=== PATIENT | female | born 1930 | race Caucasian/White ===

== ENCOUNTER 2018-09-07 09:40 | Inpatient (IN) ==
[2018-09-07 11:30] LABS: BASO# 0.05 X1000 (0.0-0.2); BASO% 0.4 % (0.0-0.8); EOS# 0.19 X1000 (0.0-0.7); EOS% 1.4 % (0.0-10.0); HEMATOCRIT 31.7 % (37.0-47.0); HEMOGLOBIN 9.4 g/dL (12.0-16.0); IMM GRAN# 0.07 X1000 (0.0-0.04); IMM GRAN% 0.5 % (0.0-0.5); LYMPH# 2.45 X1000 (1.2-3.4); LYMPH% 18.5 % (20.5-51.1); MCH 21.2 PG (27-31); MCHC 29.7 g/dL (33-37); MCV 71.6 FL (81-99); MONO# 1.47 X1000 (0.11-0.59); MONO% 11.1 % (1.7-9.3); NEUT# 9.02 X1000 (1.4-6.5); NEUT% 68.1 % (42.2-75.2); PLT 279 X1000 (130-400); RBC 4.43 XMIL (4.2-5.4); RDW 17.1 % (11.5-14.5); WBC 13.25 X1000 (4.8-10.8)
[2018-09-07 11:41] LABS: ALB/GLOB RATIO 1.1; ALBUMIN 3.4 g/dL (3.5-5.0); CALCIUM 9.9 mg/dL (8.8-10.2); CREATININE 1.1 mg/dL (0.5-0.9); POTASSIUM 4.5 mmol/L (3.5-5.1); TOTAL BILIRUBIN 0.46 mg/dL (0.20-1.00); TOTAL PROTEIN 6.4 g/dL (6.3-8.3)
--- NOTE | 2018-09-07 11:57 | Diag Imaging Result Doc PS360 ---
CHEST-2 VIEWS - 09/07/2018 INDICATION: weakness/cough COMPARISON: 10/06/2017 FINDINGS: There is cardiomegaly and pulmonary vascular congestion. There is some hazy infiltrate worse in the lateral left lung. No pneumothorax or pleural effusion. IMPRESSION: 1. Cardiomegaly and pulmonary vascular congestion. 2. Hazy infiltrate in the left lung suggesting pneumonia or edema. Electronically signed by Yoni Mcclellan 09/07/2018 11:55 AM
[2018-09-07 14:28] LABS: URINE SOURCE CATH
[2018-09-07 15:15] LABS: BILIRUBIN URINE NEGATIVE (NEGATIVE); BLOOD URINE NEGATIVE (NEGATIVE); COLOR YELLOW; GLUCOSE URINE NEGATIVE (NEGATIVE); KETONE URINE NEGATIVE (NEGATIVE); PH URINE 5.5; SP GRAVITY URINE 1.023; TURBIDITY URINE HAZY (CLEAR)
[2018-09-07 15:16] LABS: LEUKOCYTES URINE NEGATIVE (NEGATIVE); NITRITE URINE NEGATIVE (NEGATIVE); PROTEIN URINE 70 mg/dL (NEGATIVE); UROBILINOGEN URINE NORMAL (NORMAL)
[2018-09-07 15:17] LABS: UR EPITHELIAL CELLS <10 /HPF (<10); URINE BACTERIA NEGATIVE /HPF; URINE RBC <10 /HPF (<10); URINE WBC <10 /HPF (<10)
--- NOTE | 2018-09-07 15:39 | PROVIDER DOCUMENTATION ---
This chart was entered by Vicki Bender Scribe, acting as scribe for Darien Mckeon DO. HPI-General Adult - General Chief Complaint: General Adult Stated Complaint: STROKE SYMPTOMS Time Seen by Provider: 09/07/18 10:36 Source: patient, family Allergies/Adverse Reactions: Patient Allergies Allergy/AdvReac Type Severity Reaction Status Date / Time codeine Allergy Unknown Verified 10/06/17 21:10 Home Medications: Home Medication List Medication Instructions Recorded Confirmed Last Taken Type Aspirin 81 mg PO DAILY 06/25/13 10/06/17 10/06/17 09:00 History Pantoprazole Sodium [Protonix] 40 mg PO DAILY 06/25/13 10/06/17 10/06/17 09:00 H istory Allopurinol 100 mg PO DAILY 09/24/17 10/06/17 10/06/17 09:00 History Baclofen 10 mg PO QHS 09/24/17 10/06/17 10/05/17 21:00 History Losartan [Cozaar] 100 mg PO DAILY 09/24/17 10/06/17 10/06/17 09:00 History Metoprolol Succinate E.r. [Toprol 100 mg PO QHS 09/24/17 10/06/17 10/05/17 21:00 History Xl] Oxybutynin [Ditropan] 5 mg PO DAILY 09/24/17 10/06/17 10/06/17 09:00 History Trazodone [Desyrel] 100 mg PO QHS 09/24/17 10/06/17 10/05/17 21:00 History Amlodipine [Norvasc] 10 mg PO DAILY #90 tab 09/26/17 10/06/17 10/06/17 09:00 Rx - History of Present Illness -Gen Adult Nature of Presenting Problems: 88 y/o female presents to ED with AMS with unknown onset. Pt complains of mouth pain and SOB. Son of pt states she fell 3 days ago in the restroom and had L wrist pain. Pt was seen by PCP and was told she did not fracture her wrist. Son of pt reports "her mind isn't right." Pt is alert and oriented x 2. Location of Pain/Injury: reports: mouth Pain Radiation: reports: no radiation Quality of Pain: reports: aching Severity: reports: mild Onset/Duration: reports: unsure Timing: reports: still present Context/Activities at Onset: reports: other (fall 3 days ago) Modifying Factors: improves with: nothing Associated Symptoms: reports: shortness of breath, other (mouth pain, AMS) Similar Symptoms Previously?: No Recently seen or treated by another doctor?: Yes (PCP) Review of Systems - Adult - REVIEW OF SYSTEMS - ADULT Constitutional: reports: other (AMS). denies: chills, fever Eyes: reports: no symptoms reported Ears, Nose, Mouth & Throat: reports: mouth/dental pain. denies: epistaxis Cardiovascular: denies: chest pain, palpitations Respiratory: reports: shortness of breath. denies: cough Gastrointestinal: denies: abdominal pain, diarrhea, nausea, vomiting Genitourinary: reports: no symptoms reported Musculoskeletal: denies: back pain, joint pain Integumentary: reports: no symptoms reported Neurological: reports: other (AMS). denies: dizziness/vertigo, seizure Psychiatric: reports: no symptoms reported Endocrine: reports: no symptoms reported Hematologic/Lymphatic: reports: no symptoms reported Allergic/Immunologic: reports: no symptoms reported All Other Systems: Reviewed and Negative Past History - Adult - PAST MEDICAL HISTORY-ADULT Review of Records: reports: Old Records Reviewed, Nursing Assessment Review, Medications Reviewed Major Childhood Illnesses: reports: denies history Cardiovascular: reports: HTN, hyperlipidemia, murmur Respiratory: reports: asthma Gastrointestinal: reports: GERD Obstetrical/Gynecological: reports: denies history Genitourinary: reports: kidney disease Musculoskeletal: reports: denies history Neurological: reports: denies history Endocrine/Immune: reports: denies history Other Conditions: reports: denies history - PRIOR SURGERIES/PROCEDURES Surgical/Procedure History: reports: hysterectomy, orthopedic (extremity) (shoulder, leg), back/neck - PRIOR HOSPITALIZATIONS Prior Hospitalizations: reports: none - IMMUNIZATION STATUS Childhood Immunizations: See Nurse Assessment Flu Vaccine: See Nurse Assessment - FAMILY HISTORY Family History: reviewed, not pertinent - SOCIAL HISTORY Smoking: quit greater than 1 year Substance Use: none/never Alcohol Use Frequency: never Living Situation: family Physical Exam-General - PHYSICAL EXAM-ADULT Initial Vital Signs Reviewed: Yes (O2 sats in 80s/low 90s) - CONSTITUTIONAL General Appearance: appears well, alert, no apparent distress, other (oriented x2) - EYES Eyes: PERRL/EOMI, pink conjunctivae - HEAD, EARS, NOSE, MOUTH & THROAT HENMT: normocephalic/atraumatic, moist mucous membranes, normal ENT inspection - NECK Neck: non-tender, full range of motion - RESPIRATORY Respiratory: chest non-tender, normal breath sounds, crackles - CARDIOVASCULAR Cardiovascular: normal peripheral pulses, regular rate, rhythm - GASTROINTESTINAL (ABDOMEN) Abdominal Exam: normal bowel sounds, non tender, soft - MUSCULOSKELETAL Back Exam: normal inspection, no CVA tenderness, no vertebral tenderness Extremity: normal range of motion, non-tender, swelling (L ankle), other (ecchymosis to L ankle/foot) - SKIN Integumentary: normal color, warm/dry, ecchymosis (L ankle/foot), swelling (L ankle) - NEUROLOGIC Neurologic: educational assistant teacher II-XII nml as tested (Intact), grossly normal, no motor/sensory deficits - PSYCHIATRIC Psych/Mental Status: normal mood/affect, normal thought content, normal thought process. negative: oriented x 3 (x2) Progress - PLAN OF CARE/RESULTS Progress/Plan/Lab Results: Vital Signs - 8 hr 09/07/18 09:48 Temperature 97.8 F Pulse Rate 78 Respiratory Rate 18 Blood Pressure 142/60 O2 Sat by Pulse Oximetry 75 L Orders Category Date Time Status CHEST-2 VIEWS [RAD] Stat Exams 09/07/18 10:46 Ordered CBC WITH ELECTRONIC DIFF [HEME] Stat Lab 09/07/18 10:45 Uncollected COMPREHENSIVE METABOLIC PANEL [CHEM] Stat Lab 09/07/18 10:45 Ordered UA NIMS W/REFLEX CULT [URINALYSIS] Stat Lab 09/07/18 10:46 Uncollected Laboratory Tests 09/07/18 09/07/18 09/07/18 11:00 11:00 14:19 WBC 13.25 H RBC 4.43 Hgb 9.4 L Hct 31.7 L MCV 71.6 L MCH 21.2 L MCHC 29.7 L RDW Std Deviation 17.1 H Plt Count 279 MPV Not Reportable Immature Gran % (Auto) 0.5 Neut % (Auto) 68.1 Lymph % (Auto) 18.5 L [place] % (Auto) 11.1 H Eos % (Auto) 1.4 Baso % (Auto) 0.4 Immature Gran # (Auto) 0.07 H Neut # (Auto) 9.02 H Lymph # (Auto) 2.45 [place] # (Auto) 1.47 H Eos # (Auto) 0.19 Baso # (Auto) 0.05 Sodium 140 Potassium 4.5 Chloride 102 Carbon Dioxide 35 Anion Gap 3 BUN 16 Creatinine 1.1 H Estimated GFR/1.73 m2 47 BUN/Creatinine Ratio 15 Glucose 154 H Calculated Osmolality 284 Calcium 9.9 Total Bilirubin 0.46 AST 15 ALT 12 Alkaline Phosphatase 93 Total Protein 6.4 Albumin 3.4 L Globulin 3.0 Albumin/Globulin Ratio 1.1 Urine Source CATH Urine Color YELLOW Urine Turbidity HAZY Urine pH 5.5 Ur Specific [place] 1.023 Urine Protein 70 A Ur Glucose (Stick) NEGATIVE Ur Ketones (Stick) NEGATIVE Urine Blood NEGATIVE Urine Nitrite NEGATIVE Urine Bilirubin NEGATIVE Urobilinogen Dipstick NORMAL Urine Leukocytes NEGATIVE Urine WBC (Auto) <10 Urine RBC (Auto) <10 U Epithel Cells (Auto) <10 Urine Bacteria (Auto) NEGATIVE Result Diagrams: 09/07/18 11:00 09/07/18 11:00 - EKG 1 Time of EKG reading by physician:: 10:11 EKG Read and Signed by:: Darien Mckeon EKG Interpretation (*Must complete 3 of following elements*): Abnormal Rate: 77 Rhythm: NSR [place]: normal QRS: LVH (with repolarization abnormality), other (possible L atrial enlargem ent) MN Interval: normal ST Wave: normal - XRAY 1 XRAY Study: Chest Impression: See EMR Report ([facility] [address] , [address], [place] [address] Department of Imaging Patient: KEM CHAPAADM Date: 09/07/18#: [id number] : 1930DM Status: REG ERAcct#: [id number] Age/Sex: 88/FRoom/Bed: Loc: ED Ordering Physician: Darien Mckeon DO Family Physician: Lincoln Colorado MD Reason for Procedure: weakness/cough Signed CHEST-2 VIEWS - 09/07/2018 INDICATION: weakness/cough COMPARISON: 10/06/2017 FINDINGS: There is cardiomegaly and pulmonary vascular congestion. There is some hazy infiltrate worse in the lateral left lung. No pneumothorax or pleural effusion. IMPRESSION: 1. Cardiomegaly and pulmonary vascular congestion. 2. Hazy infiltrate in the left lung suggesting pneumonia or edema. Electronically signed by Yoni Mclcellan 09/07/2018 11:55 AM 09/07/18 1155 Interpreting Physician: Yoni Mcclellan MD Dictated Date/Time: 09/07/18 1154 cc: Darien Mckeon DO; Lincoln Colorado MD) - CONSULTS/PCP/HOSPITALIST Notification #1 *Consult/PCP/Hospitalist*: RADHA David for Dr. Johnson Time Discussed: 15:35 Reason/Comments: Pneumonia, AMS Consult Disposition: Admit Departure - Departure Date of Disposition Decision: 09/07/18 Time of Disposition Decision: 15:36 DIAGNOSIS: Pneumonia Qualifiers: Pneumonia type: due to unspecified organism Laterality: left Lung location: unspecified part of lung Qualified Code(s): J18.9 - Pneumonia, unspecified organism Disposition: ADMITTED INPATIENT 09 Certified Medical Emergency: Emergent Condition: Fair Referrals and Follow-Ups: Lincoln Colorado MD [Primary Care Provider] - - Critical Care Note This patient required my direct & personal management of CC.: No Attestation - Physician/ ANDRAE Attestation Patient care was provided by Advanced Practice Provider:: No The physician spent face to face time with patient:: Yes Advanced Practice Provider documentation review:: Supervising physician onsite and consulted in the evaluation and care of this patient. The physician did have a face to face encounter with the patient. This chart was documented by the indicated scribe, (Vicki Bender Scribe) and accurately reflects the services I performed and decisions made by , Darien Mckeon DO, as attested by the provider's signature.
[2018-09-07] MEDS ORDERED: LEVAQUIN 500 MG/D5W 500 MG/100 ML IVPB IV SCH (16:15)
[2018-09-07] MEDS ORDERED: DUONEB (A & A) INH PRN (16:38)
[2018-09-07] MEDS ORDERED: TYLENOL PO PRN (16:38)
[2018-09-07] MEDS ORDERED: LEVAQUIN 250 MG/D5W 250 MG/50 ML IVPB IV ONE (17:00)
[2018-09-07 17:01] LABS: IRON SATURATION 3 %; TIBC 301 ug/dL; TOTAL IRON 10 ug/dL (49-151); UNBOUND IRON 291 ug/dL (112-346)
[2018-09-07] MEDS ORDERED: LASIX IV ONE (17:04)
[2018-09-07 17:26] LABS: ALLEN TEST NO; BE 5.9 mmoll (-3.0-3.0); BLOOD TYPE ARTERIAL; HCO3-(ACT) 29.5 mmoll (20.0-26.0); O2(CT) 12.2 mL/dL (15.0-23.0); O2HB 93.8 % (95.0-99.0); PCO2(98.6) 48 mmHg (35-45); PO2(98.6) 67 mmHg (60-100); SAMPLE BLOOD; SAO2 96.3 % (95.0-100.0); THB 9.2 g/dL (11.5-17.4); pH(98.6) 7.42 (7.35-7.45)
[2018-09-07 17:28] LABS: MODALITY CANNULA
--- NOTE | 2018-09-07 17:33 | HISTORY AND PHYSICAL ---
PRIMARY CARE PROVIDER: Dr. Lincoln Colorado. CHIEF COMPLAINT: Per patient, shortness of breath, increase in weakness. HISTORY OF PRESENT ILLNESS: Ms. Martini is an 88-year-old female who carries a past medical history of hypertension, GERD, hyperlipidemia, anxiety, insomnia, and gout, who for the past few days has had difficulty breathing and has been wheezing on and off for several months. She reports falling sometime last week. She had a x-ray of her foot as well as wrist that just showed, per family at bedside, there was nothing wrong with the wrist and she had twisted her ankle. There continues to be some swelling and various shades of bruising of green and yellow. She has a son at the bedside who is deaf as well as a caregiver who is deaf. I did speak with a daughter over the phone via face time who reports that she was told today that she was having trouble breathing and she is the one who reported that she has been wheezing on and off over the last several months. Workup in the ED showed an elevated white count of 13 and a chest x-ray that showed cardiomegaly, pulmonary vascular congestion, a hazy infiltrate in the left lung suggesting pneumonia or edema. She does report feeling hot last night, as well as a frequent cough that is nonproductive. Initially reported some altered mental status. However, the family did not write this down or tell me over the phone that she was confused. She is A O x4. She denied headache, fever, chill, chest pain, palpitations, nausea, vomiting, diarrhea, constipation, dysuria. However, son at the bedside wrote down that she was having to get up several times during the night to go to the restroom. Given her chest x-ray, we will go ahead and check a proBNP as well as a set of cardiac enzymes. Her urinalysis is negative for bacteria, negative for nitrites. Will initiate her on IV antibiotics and IV fluids for an acute kidney injury on probable kidney disease. We will recheck her a.m. labs. PAST MEDICAL HISTORY: 1. Hypertension. 2. GERD. 3. Hyperlipidemia. 4. Anxiety. 5. Insomnia. 6. Questionable TIA in the past. 7. Gout. 8. 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 PAST SURGICAL HISTORY: 1. Hysterectomy. 2. Shoulder surgery. 3. Back surgery. 4. Left leg surgery with angus placement. SOCIAL HISTORY: She is a . She has a deaf caregiver at the bedside as well as her deaf, a daughter who lives in [place]. She denies any alcohol or illicit drug use. She quit smoking at the age of 52. FAMILY HISTORY: Father from a myocardial infarction. Mother of a CVA. Sister who from pancreatic cancer and a brother who from pneumonia and end-stage renal disease. ALLERGIES: Codeine. HOME MEDICATIONS: Have not been verified. PHYSICAL EXAMINATION: VITAL SIGNS: Temperature is 97.8 degrees, heart rate 77, respirations 22, blood pressure 157/97, O2 is 92% on 5 L nasal cannula. Initially when she came in she was hypoxic at 75. We will check an ABG to see how she is saturating on supplemental O2. GENERAL: Ms. Martini is an 88-year-old female who is lying in the bed, in no acute distress. HEENT: Atraumatic, normocephalic. PERRL. NECK: Supple. Trachea midline. CARDIOVASCULAR: S1, S2 appreciated. No murmurs, gallops, rubs noted. RESPIRATORY: Lung sounds did note some expiratory wheezes. GI: Soft, nontender, nondistended. Positive bowel sounds 4 quadrants. EXTREMITIES: Her left foot was swollen secondary to an ankle twist with various degrees of bruising, green and yellow appearance. NEUROLOGIC: Patient is awake, alert, oriented x4. Follows commands. Moves all extremities. DIAGNOSTIC DATA: Chest x-ray: Cardiomegaly, pulmonary vascular congestion, hazy infiltrate in the left lung suggesting pneumonia or edema. LABORATORY DATA: White count 13, hemoglobin and hematocrit 9 and 31, platelet count 279,000. Sodium 140, potassium 4.5, BUN 16, creatinine 1.1, blood glucose is 154, albumin is 3.4. Urinalysis was negative. ASSESSMENT AND PLAN: 1. Hypoxemia upon admission. The patient was 75% on room air. She has since been on supplemental O2. We will check an ABG. She is currently on 5 L. Probably secondary to pneumonia, questionable pulmonary edema. 2. Probable left-sided pneumonia. She does have an elevated white count of 13. We will start her on IV antibiotics, bronchodilators, supplemental O2, and aggressive pulmonary toilet. 3. Questionable pulmonary edema as seen on chest x-ray. We will check a proBNP as well as a set of cardiac enzymes. 4. Chronic kidney disease. Appears to be stable. 5. Hyperglycemia. The patient denies any history of diabetes and does not appear to be any diabetic medications. 6. Hypertension. Will continue home medications when verified. 7. Hyperlipidemia. Will continue medications when verified. 8. Anxiety and insomnia. 9. Gout. 10. 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 11. Further recommendations to follow physician evaluation, laboratory and diagnostic data. Dictated by RADHA Hong for Josh Johnson MD cc: MD Lincoln Ellison MD I agree with most components of history, physical, assessment and plan. A separate addendum has been dictated. CURTIS
--- NOTE | 2018-09-07 17:39 | HISTORY AND PHYSICAL ---
ADDENDUM TO HISTORY AND PHYSICAL DICTATED BY THE NURSE PRACTITIONER: I agree with most components of history, physical, assessment and plan. In brief, Ms. Martini is an 88-year-old lady with past medical history of essential hypertension, gout, asthma, diastolic dysfunction, right eye blindness, previous episodes of unexplained encephalopathy, who came in with chief complaints of altered mental status, shortness of breath, and fall episode, mechanical fall 3 days prior to presentation on left ankle. In the emergency room, she was found to be tachypneic, hypoxic and having leukocytosis. Unfortunately though, the chest x-ray detected bilateral infiltrate predominantly on the left side. She has not been given antibiotics. Hospitalist team was consulted for further management. By the time I evaluated the patient, she had already been transferred to the floor. Antibiotics had been ordered by my nurse practitioner. SUBJECTIVE: At the time of my evaluation, patient denies any shortness of breath. She states she has been coughing recently, but has not been bringing up any sputum. She denies any chest pain. Family is not available to talk to me, however, nurse practitioner did talk with the patient's daughter on video call. PHYSICAL EXAMINATION: VITAL SIGNS: Temperature 98.3 degrees, pulse of 72, respiratory rate 20, blood pressure 150/54. She is saturating 94% on 5 L nasal cannula. GENERAL: She appears to be in mild distress and using abdominal muscles. No pallor, cyanosis, clubbing, or icterus. HEENT: Oral cavity is moist. LUNGS: She has air entry bilaterally equal, mild end-expiratory wheezes, bilateral infrascapular crackles inspiratory. CARDIOVASCULAR: S1, S2 normal. No murmur, rub, or gallop. ABDOMEN: Obese, soft, nontender. No hepatosplenomegaly. EXTREMITIES: She has bilateral lower extremity edema, more prominent on the left ankle with some ecchymosis. LABORATORY DATA: Suggestive of leukocytosis, microcytic anemia, normal platelet count, normal electrolytes, what appears to be chronic kidney disease stage 3, elevated proBNP. Her ABG is pending. Blood culture has not been ordered. IMAGING: Chest x-ray suggests bilateral pulmonary vascular congestion, bilateral lower pulmonary lobe infiltrate. ASSESSMENT AND PLAN: 1. Suspected sepsis due to left lower lobe pneumonia. 2. Acute hypoxic respiratory failure due to left lower lobe pneumonia. 3. Diastolic heart failure, acute exacerbation of diastolic heart failure. 4. Chronic kidney disease stage 3. 5. Microcytic hypochromic anemia. 6. Chronic hypoxic respiratory failure. 7. Essential hypertension with history of asthma. PLAN: I discussed with the nurse to immediately give her antibiotics. I will give her intravenous Lasix, albuterol ipratropium nebulization, and get an ABG. I will also get blood culture, sputum culture, urine antigen. I will follow up with EKG and troponins. Plan of care discussed with the patient. All of her questions have been answered. Neurologically, she is alert. She is oriented to place. She is following simple commands and able to contribute to most of the history, however, she does have some memory impairment. cc: Josh Johnson MD
[2018-09-07 19:33] LABS: INR 1.01; PROTIME 14.1 Seconds (11.0-16.0)
[2018-09-07 19:34] LABS: PTT 28.2 Seconds (22.3-41.8)
[2018-09-07 19:53] LABS: URINE SOURCE CLEAN CATCH
[2018-09-07] MEDS: DUONEB (A & A) INH SCH ×2 (20:00→23:11)
[2018-09-07 20:12] LABS: BILIRUBIN URINE NEGATIVE (NEGATIVE); BLOOD URINE NEGATIVE (NEGATIVE); COLOR STRAW; GLUCOSE URINE NEGATIVE (NEGATIVE); KETONE URINE NEGATIVE (NEGATIVE); LEUKOCYTES URINE NEGATIVE (NEGATIVE); NITRITE URINE NEGATIVE (NEGATIVE); PROTEIN URINE NEGATIVE (NEGATIVE); SP GRAVITY URINE 1.006; TURBIDITY URINE CLEAR (CLEAR); UROBILINOGEN URINE NORMAL (NORMAL)
[2018-09-07 20:15] LABS: UR EPITHELIAL CELLS <10 /HPF (<10); URINE BACTERIA NEGATIVE /HPF; URINE RBC <10 /HPF (<10); URINE WBC <10 /HPF (<10)
[2018-09-07] MEDS: TOPROL XL PO SCH (21:35)
[2018-09-08] MEDS: DUONEB (A & A) INH SCH ×6 (03:40→23:25)
[2018-09-08 04:52] LABS: ALLEN TEST YES; BE 8.2 mmoll (-3.0-3.0); BLOOD TYPE ARTERIAL; HCO3-(ACT) 31.3 mmoll (20.0-26.0); METHB 0.6 % (0.0-1.5); O2(CT) 12.2 mL/dL (15.0-23.0); O2HB 94.9 % (95.0-99.0); PCO2(98.6) 40 mmHg (35-45); PO2(98.6) 69 mmHg (60-100); SAMPLE BLOOD; SAO2 97.1 % (95.0-100.0); THB 9.1 g/dL (11.5-17.4); pH(98.6) 7.51 (7.35-7.45)
[2018-09-08 04:55] LABS: MODALITY BI PAP
[2018-09-08] MEDS ORDERED: LASIX IV ONE (06:00)
--- NOTE | 2018-09-08 06:36 | Diag Imaging Result Doc PS360 ---
EXAM: CHEST-PORTABLE HISTORY: Pneumonia TECHNIQUE: Portable chest single view COMPARISON: 09/07/2018 FINDINGS: The lungs are well expanded. The heart is mildly prominent. There is pulmonary edema similar to the prior exam. No pleural effusions identified. No consolidation. IMPRESSION: Persistent cardiomegaly and pulmonary edema. Electronically signed by Chinmay Tate 09/08/2018 6:33 AM
[2018-09-08 07:08] LABS: BASO# 0.04 X1000 (0.0-0.2); BASO% 0.4 % (0.0-0.8); EOS# 0.41 X1000 (0.0-0.7); HEMATOCRIT 33.5 % (37.0-47.0); HEMOGLOBIN 9.8 g/dL (12.0-16.0); IMM GRAN# 0.05 X1000 (0.0-0.04); IMM GRAN% 0.5 % (0.0-0.5); LYMPH# 1.55 X1000 (1.2-3.4); LYMPH% 15.3 % (20.5-51.1); MCH 20.8 PG (27-31); MCHC 29.3 g/dL (33-37); MONO# 1.12 X1000 (0.11-0.59); MPV 12.9 FL (7.4-10.4); NEUT# 6.97 X1000 (1.4-6.5); NEUT% 68.8 % (42.2-75.2); PLT 312 X1000 (130-400); RBC 4.72 XMIL (4.2-5.4); RDW 16.9 % (11.5-14.5); WBC 10.14 X1000 (4.8-10.8)
[2018-09-08 07:19] LABS: EOS 4 % (1-10); LYMPHS 18 % (21-51); MONO 12 % (1-9); SEGS 66 % (42-75)
[2018-09-08 07:29] LABS: ALBUMIN 3.5 g/dL (3.5-5.0); CALCIUM 10.2 mg/dL (8.8-10.2); CREATININE 1.1 mg/dL (0.5-0.9); POTASSIUM 3.6 mmol/L (3.5-5.1); TOTAL BILIRUBIN 0.61 mg/dL (0.20-1.00)
--- NOTE | 2018-09-08 08:40 | EKG Report ---
Test Performed on : 09/07/2018 10:11:52 AM Test Reason : ED. NO EKG ORDER FOR MUSE Blood Pressure : / mmHG Vent. Rate : 077 BPM Atrial Rate : 077 BPM P-R Int : 154 ms QRS Dur : 080 ms QT Int : 368 ms P-R-T Axes : 042 -12 078 degrees QTc Int : 416 ms Normal sinus rhythm. Possible Left atrial enlargement Left ventricular hypertrophy with repolarization abnormality Abnormal ECG When compared with ECG of 06-OCT-2017 21:03, No significant change was found Unconfirmed Result
[2018-09-08] MEDS: ASPIRIN PO SCH (10:18)
[2018-09-08] MEDS: DITROPAN PO SCH (10:18)
[2018-09-08] MEDS: FERROUS SULFATE PO SCH (10:18)
[2018-09-08] MEDS: ZYLOPRIM PO SCH (10:19)
[2018-09-08] MEDS: LEVAQUIN 750 MG/D5W 750 MG/150 ML IVPB IV SCH (10:19)
[2018-09-08] MEDS: LEXAPRO PO SCH (10:19)
[2018-09-08] MEDS: PROTONIX PO SCH (10:19)
--- NOTE | 2018-09-08 13:30 | PROGRESS NOTE ---
DATE: 09/08/2018 INTERVAL HISTORY: No acute events overnight. The patient did receive her BiPAP at nighttime. In the morning time her oxygenation looked better on BiPAP SUBJECTIVE: Patient states she is feeling a little better; however, is not able to contribute to the history meaningfully as she does have memory impairment. She was saturating 99% on BiPAP. Her leukocytosis has resolved and she has been started on iron tablets for iron deficiency anemia. Her troponins were negative. She is coughing but not bringing up sputum. VITALS: Temperature 98.1 degrees, pulse 71, respiratory 20, blood pressure 130/47. She is saturating 99% on 4 to 5 L nasal cannula. PHYSICAL EXAMINATION: General: Does not appear in any acute distress. HEENT: Oral cavity is moist bilateral. Lungs: Air entry bilaterally equal. Mild end-expiratory wheezes and bilateral infrascapular crackles. Cardiovascular: S1, S2 normal. No murmur or gallop. Abdomen: Obese, soft, nontender. She has bilateral lower extremity edema, more prominent on the left ankle with some ecchymosis. Neurologic: She is alert she is oriented to herself. She could recognize me as her doctor. She remembers her son and she largely remembers her past history, but with some memory gaps. LABS: Suggestive of resolution of leukocytosis with WBC of 10,000. Continues to have microcytic anemia with hemoglobin of 9.8, platelet 312,000, pH of 7.5, and PO2 of 69 on 30% BiPAP. Kidney function is stable at CKD stage 3 level. She does have significant iron deficiency with low iron saturation. IMAGING: Chest x-ray suggests persistent cardiomegaly and pulmonary edema. Electrocardiogram had normal sinus rhythm with left atrial enlargement. ASSESSMENT AND PLAN: 1. Acute hypoxic respiratory failure and suspected sepsis due to left lower lobe pneumonia and bilateral acute pulmonary edema. Continue intravenous Lasix, intravenous levofloxacin. Follow up urine antigens. Follow up echocardiogram. I will keep her on night time BiPAP and follow up blood cultures. 2. Suspected acute diastolic congestive heart failure exacerbation. Follow up with echocardiogram. She denies any known history of coronary artery disease or stent. 3. Microcytic hypochromic anemia with iron deficiency start. Patient on iron sulfate supplementation. 4. History of asthma. Continue albuterol ipratropium nebulization. Currently not in significant exacerbation. 5. Others continue metoprolol and aspirin for essential hypertension, pantoprazole for chronic gastroesophageal reflux disease , oxybutynin for bladder spasm. 6. Disposition: Continue to monitor patient inside the hospital. Physical therapy has been ordered. I conveyed the plan with the patient's son by writing it in a paper. All of his questions have been answered. Once I get daughter's contact information I will update her as well. cc: Josh Johnson MD
[2018-09-08] MEDS: KLOR-CON PO SCH ×2 (13:33→17:19)
[2018-09-08] MEDS: LASIX IV SCH (17:19)
--- NOTE | 2018-09-08 19:59 | ECHO REPORT ---
ORDER DATE: 09/07/2018 INDICATION: Evaluate ejection fraction. FINDINGS: 1. The right atrium appears normal in size at 3 cm. 2. Mild tricuspid regurgitation. RV systolic pressure of 71, suggesting pulmonary hypertension. 3. Normal RV size and systolic function. 4. Mild pulmonic insufficiency. 5. Moderate left atrial enlargement with a volume index of 35. 6. No mitral valve prolapse. Mitral annular calcification is noted with mild mitral regurgitation. 7. Normal LV dimensions with an end-diastolic dimension of 5.2. Normal wall thicknesses with posterior and interventricular septal wall thickness of 1.1 cm each. Normal LV systolic function with calculated ejection fraction of 67%, with normal wall motion. 8. Aortic valve has some calcification associated with it. Peak gradient across the valve is 27 with a mean of 16, valve area of 1.5 cm2, suggesting mild aortic stenosis. There is mild aortic insufficiency. 9. The aorta appears normal in visualized segments. 10. No pericardial effusion identified. cc: Anthony Serrano MD
[2018-09-08] MEDS: TOPROL XL PO SCH (22:07)
[2018-09-09] MEDS: DUONEB (A & A) INH SCH ×6 (03:40→23:29)
[2018-09-09] MEDS: LASIX IV SCH ×2 (06:18→17:15)
[2018-09-09 06:53] LABS: CALCIUM 10.2 mg/dL (8.8-10.2); CREATININE 1.1 mg/dL (0.5-0.9); MAGNESIUM 1.8 mg/dL (1.5-2.7); POTASSIUM 4.6 mmol/L (3.5-5.1)
[2018-09-09] MEDS: ZYLOPRIM PO SCH (09:35)
[2018-09-09] MEDS: LEXAPRO PO SCH (09:36)
[2018-09-09] MEDS: DITROPAN PO SCH (09:36)
[2018-09-09] MEDS: ASPIRIN PO SCH (09:36)
[2018-09-09] MEDS: PROTONIX PO SCH (09:36)
[2018-09-09] MEDS: FERROUS SULFATE PO SCH (09:36)
[2018-09-09] MEDS: LEVAQUIN 750 MG/D5W 750 MG/150 ML IVPB IV SCH (09:36)
[2018-09-09] MEDS ORDERED: LOPRESSOR PO ONE (14:52)
--- NOTE | 2018-09-09 15:17 | PROGRESS NOTE ---
DATE: 09/09/2018 INTERVAL HISTORY: No acute events overnight. The patient is a little more confused today as compared to before, though she denies any new complaints. She complains of some mouth sores. I was not able to talk with the patient's daughter on video call since she did not product picker. SUBJECTIVE: The patient denies any chest pain. Her shortness of breath is better. She states she uses about 2 to 3 L of oxygen at home. VITALS: Temperature 97.8 degrees, pulse 96, respiratory rate 20, blood pressure 160/60, saturating 100% on 5 L nasal cannula and I have placed orders to decrease the amount of oxygen. PHYSICAL EXAMINATION: General: Does not appear in any acute distress. Slightly anxious. Oral cavity, she has about a 1 cm, round-looking ulcer on the floor of the mouth likely because of an ill-fitting denture. Oral cavity is moist without pharyngeal exudate. Air entry bilaterally equal. Mild end-expiratory wheezes. No rhonchi. Inspiratory crackles. S1, S2 normal. No murmur, rub, or gallop. Abdomen is obese, soft, nontender. Decreased bilateral lower extremity edema. She is alert and oriented to herself. She is engaging in history most of the time. LABS: Today suggestive of stable chronic kidney disease stage 3. MICROBIOLOGY: Blood culture, no growth to date. The patient has not been able to make sputum. Urine streptococcal and Legionella antigens are negative. ProBNP is pending for tomorrow. ASSESSMENT AND PLAN: 1. Acute hypoxic respiratory failure and suspected sepsis due to left lower lobe pneumonia and bilateral acute pulmonary edema. Continue intravenous Lasix and change to oral Lasix starting tomorrow. Continue intravenous levofloxacin. Echocardiogram had normal left ventricular ejection fraction with pulmonary hypertension. 2. Acute diastolic congestive heart failure exacerbation. Follow up proBNP tomorrow. Continue Lasix and beta blockers. 3. Microcytic, hypochromic anemia with iron deficiency. Continue iron sulfate supplementation. 4. Suspected mild cognitive impairment. The patient may have early dementia. I will defer management to outpatient provider about starting her on cholinesterase inhibitor medications. 5. Others. Continue albuterol-ipratropium nebulization for history of asthma and chronic hypoxic respiratory failure; aspirin, metoprolol, and amlodipine for essential hypertension; pantoprazole for chronic gastroesophageal reflux disease; oxybutynin for bladder spasm. 6. Disposition. The patient appears to be improving at a slower pace. The patient needs significant help with her activities of daily living and social work consult has been placed. I called the patient's daughter who lives in [place] at [phone]. However, the call directly goes in her voicemail which is full. Plan of care discussed with the social service liaison and nursing team. cc: Josh Johnson MD
[2018-09-09] MEDS: XYLOCAINE 2% VISCOUS MT SCH (15:54)
[2018-09-09 20:34] LABS: CALCIUM 10.8 mg/dL (8.8-10.2); CREATININE 1.6 mg/dL (0.5-0.9); MAGNESIUM 1.7 mg/dL (1.5-2.7); POTASSIUM 4.5 mmol/L (3.5-5.1)
[2018-09-09] MEDS ORDERED: CARDIZEM IV ONE (21:01)
[2018-09-09] MEDS ORDERED: CARDIZEM 125 MG/D5W 125 MG/125 ML IVPB IV SCH (21:15)
[2018-09-09] MEDS ORDERED: CARDIZEM 100 MG/NS 100 MG/100 ML IVPB IV SCH (21:15)
[2018-09-10] MEDS: DUONEB (A & A) INH SCH ×4 (03:33→16:12)
[2018-09-10] MEDS ORDERED: LASIX PO SCH (06:00)
[2018-09-10 06:14] LABS: CALCIUM 10.3 mg/dL (8.8-10.2); CREATININE 1.8 mg/dL (0.5-0.9); POTASSIUM 4.7 mmol/L (3.5-5.1)
--- NOTE | 2018-09-10 06:56 | EKG Report ---
Test Performed on : 09/09/2018 8:00:07 PM Test Reason : A-Fib Blood Pressure : / mmHG Vent. Rate : 141 BPM Atrial Rate : 138 BPM P-R Int : 000 ms QRS Dur : 074 ms QT Int : 292 ms P-R-T Axes : 000 -29 066 degrees QTc Int : 447 ms Atrial fibrillation. with rapid ventricular response. Voltage criteria for left ventricular hypertrophy Nonspecific ST abnormality Abnormal ECG When compared with ECG of 07-SEP-2018 10:11, (Unconfirmed) Atrial fibrillation. has replaced Sinus rhythm. Vent. rate has increased BY 64 BPM Confirmed by Nestor Peace MD ([id number]) on 09/10/2018 5:50:50 PM
[2018-09-10] MEDS ORDERED: NS 1,000 ML IV ONE (08:23)
--- NOTE | 2018-09-10 08:23 | EKG Report ---
Test Performed on : 09/10/2018 08:17:38 AM Test Reason : rhythm change Blood Pressure : / mmHG Vent. Rate : 091 BPM Atrial Rate : 091 BPM P-R Int : 138 ms QRS Dur : 072 ms QT Int : 366 ms P-R-T Axes : 034 -26 030 degrees QTc Int : 450 ms Sinus rhythm. with marked sinus arrhythmia. Voltage criteria for left ventricular hypertrophy Abnormal ECG When compared with ECG of 09-SEP-2018 20:00, (Unconfirmed) Sinus rhythm. has replaced Atrial fibrillation. Vent. rate has decreased BY 50 BPM Non-specific change in ST segment in Lateral leads Confirmed by Nestor Peace MD ([id number]) on 09/10/2018 6:06:29 PM
[2018-09-10] MEDS: NORVASC PO SCH (08:53)
[2018-09-10] MEDS: PROTONIX PO SCH (08:53)
[2018-09-10] MEDS: ASPIRIN PO SCH (08:53)
[2018-09-10] MEDS: DITROPAN PO SCH (08:54)
[2018-09-10] MEDS: ZYLOPRIM PO SCH (08:54)
[2018-09-10] MEDS: TOPROL XL PO SCH ×3 (08:54→20:34)
[2018-09-10] MEDS: FERROUS SULFATE PO SCH (08:54)
[2018-09-10] MEDS: LEXAPRO PO SCH (08:54)
[2018-09-10] MEDS ORDERED: TOPROL XL PO SCH (09:00)
--- NOTE | 2018-09-10 10:33 | PROGRESS NOTE ---
DATE: 09/10/2018 INTERVAL HISTORY: Overnight, the patient went into atrial fibrillation with rapid ventricular rate with a heart rate as high as 150, so she was transferred to [facility] and was started on intravenous diltiazem drip. In the morning time, I was told she had converted back to normal sinus rhythm. She did not have any chest pain or shortness of breath during this episode, and she was not hypotensive. SUBJECTIVE: She appears weak today. She is also sleepy. She keeps her eyes closed. She follows simple commands intermittently, but appears very weak and less energetic as compared to previous examination. Her son is at bedside. OBJECTIVE: Vital Signs: Temperature 99.2 degrees, pulse 91, respiratory rate 19, blood pressure 150/63, she is saturating 98% on 4 L nasal cannula. General: She appears weak, not in any distress though. HEENT: Oral cavity is dry. Lungs: Air entry bilaterally equal. No wheeze, rhonchi, or crackles. Cardiovascular: S1, S2 normal. Regular. No murmur, rub, or gallop. Abdomen: Soft, nontender. It is slightly distended. No hepatosplenomegaly. Extremities: No lower extremity edema. Neurologic: She is drowsy, but easily arousable. LABORATORY DATA: No CBC today. BMP suggestive of acute kidney injury on what appears to be chronic kidney disease stage 3A, likely because of Lasix use. Hypercalcemia due to volume depletion. Her troponin was 0.016. Her proBNP has significantly decreased. MICROBIOLOGY: No growth. IMAGING: Electrocardiogram this morning is suggestive of sinus rhythm with sinus arrhythmia. ASSESSMENT AND PLAN: 1. Acute hypoxic respiratory failure and sepsis due to left lower lobe pneumonia and bilateral acute pulmonary edema due to acute diastolic congestive heart failure exacerbation. Stop Lasix considering her acute kidney injury, and give her gentle intravenous fluid resuscitation with normal saline. Continue intravenous levofloxacin, and I will change the dosing frequency considering her poor renal function. Echocardiogram had normal left ventricular ejection fraction with pulmonary hypertension, which could be a contributor to her hypoxia. Her ProBNP improved significantly after intravenous diuresis. 2. Atrial fibrillation with rapid ventricular response. Her volume depletion could have contributed to it. She does not have documented history of it. However, history is limited at the moment. Stop intravenous diltiazem drip, and start the patient on her home dose of extended-release metoprolol twice daily dosing. Also, keep her on PO Diltiazem for 24 hours. Her CHADS2-VASc score is at least 4. For now, I will give her therapeutic dose of enoxaparin. Daughter understood the risk vs benefit of anticoagulation and prefers to start her on anticoagulation. Once kidney function is better, I would start her Apixaban. 3. Microcytic hypochromic iron-deficiency anemia. Continue iron sulfate supplementation, and outpatient Gastroenterology followup to evaluate for need for endoscopy. She does not have signs of active bleeding. 4. Acute encephalopathy on top of Mild cognitive impairment and suspected early dementia. Daughter did mention to me about some memory impairment at baseline, however, I would get CT scan head since she is less interactive today then yesterday. 5. Others. Hold albuterol/ipratropium nebulization for history of asthma for now considering her tremors and wean down oxygen to keep spo2>94 for chronic hypoxic respiratory failure on home oxygen; aspirin, metoprolol, and amlodipine for essential hypertension; pantoprazole for chronic gastroesophageal reflux disease; oxybutynin for bladder spasm. 6. Disposition. My initial plan was to find a rehab, and discharge the patient to rehab hopefully today. However, considering atrial fibrillation episode, I will monitor her for another 24 hours while we await rehab bed. The patient's son at bedside is deaf, and I was not able to reach out to the patient's daughter yesterday despite multiple attempts. The patient's son has conveyed to me by writing on a piece of paper that he would like the patient to go to a rehab in [place]. However, considering her recent atrial fibrillation episode, I will monitor for 24 hours and wait for rehab bed in [place]. Meanwhile, I will also again try and get in touch with the patient's daughter. Plan of care discussed with the patient's son. All of his questions have been answered. ADDENDUM: I was able to talk to her daughter Shanna Rider on [phone] and updated her. Patient has a bed in [place] for Saturday. cc: MD CURTIS Ellison
[2018-09-10] MEDS: LOVENOX SUBQ SCH (11:41)
[2018-09-10] MEDS: XYLOCAINE 2% VISCOUS MT SCH (15:58)
[2018-09-10] MEDS: CARDIZEM PO SCH (16:24)
--- NOTE | 2018-09-10 18:11 | Diag Imaging Result Doc PS360 ---
CT HEAD W/O CONTRAST - 09/10/2018 INDICATION: encephalopathy COMPARISON: 09/24/2017 FINDINGS: Stable mild diffuse cerebral atrophy. There are stable small, old lacunae in the basal ganglia and caudate bilaterally. Stable periventricular white matter chronic microvascular disease. No intracranial mass or hemorrhage. The skull is intact. The sinuses are clear. IMPRESSION: No acute process. This exam was performed using automated exposure control, adjustment of mA or kV according to patient size, and/or use of iterative reconstruction technique Electronically signed by Yoni Mcclellan 09/10/2018 6:09 PM
[2018-09-11] MEDS: CARDIZEM PO SCH ×4 (00:29→17:47)
[2018-09-11 06:05] LABS: BASO# 0.07 X1000 (0.0-0.2); BASO% 0.6 % (0.0-0.8); EOS# 0.56 X1000 (0.0-0.7); HEMATOCRIT 32.6 % (37.0-47.0); HEMOGLOBIN 9.6 g/dL (12.0-16.0); IMM GRAN# 0.06 X1000 (0.0-0.04); IMM GRAN% 0.5 % (0.0-0.5); LYMPH# 2.07 X1000 (1.2-3.4); LYMPH% 18.6 % (20.5-51.1); MCH 20.9 PG (27-31); MCHC 29.4 g/dL (33-37); MONO# 1.09 X1000 (0.11-0.59); MONO% 9.8 % (1.7-9.3); NEUT# 7.25 X1000 (1.4-6.5); NEUT% 65.5 % (42.2-75.2); PLT 336 X1000 (130-400); RBC 4.59 XMIL (4.2-5.4); RDW 17.6 % (11.5-14.5)
[2018-09-11 06:25] LABS: CALCIUM 10.3 mg/dL (8.8-10.2); CREATININE 1.5 mg/dL (0.5-0.9); POTASSIUM 3.9 mmol/L (3.5-5.1)
--- NOTE | 2018-09-11 07:06 | EKG Report ---
Test Performed on : 09/11/2018 05:27:45 AM Test Reason : SR to Afib Blood Pressure : / mmHG Vent. Rate : 092 BPM Atrial Rate : 096 BPM P-R Int : 000 ms QRS Dur : 074 ms QT Int : 334 ms P-R-T Axes : 000 -20 029 degrees QTc Int : 413 ms Atrial fibrillation. with a competing junctional pacemaker. Moderate voltage criteria for LVH, may be normal variant Abnormal ECG When compared with ECG of 10-SEP-2018 08:17, Atrial fibrillation. has replaced Sinus rhythm. Confirmed by Nestor Peace MD ([id number]) on 09/16/2018 9:26:47 PM
[2018-09-11] MEDS ORDERED: NS 1,000 ML IV SCH (08:00)
[2018-09-11 08:22] LABS: BLOOD TYPE ARTERIAL; SAMPLE BLOOD
[2018-09-11 08:23] LABS: ALLEN TEST YES; BE 7.2 mmoll (-3.0-3.0); HCO3-(ACT) 30.5 mmoll (20.0-26.0); METHB 1.2 % (0.0-1.5); O2(CT) 12.5 mL/dL (15.0-23.0); O2HB 93.8 % (95.0-99.0); PCO2(98.6) 46 mmHg (35-45); PO2(98.6) 70 mmHg (60-100); SAO2 96.1 % (95.0-100.0); THB 9.4 g/dL (11.5-17.4); pH(98.6) 7.45 (7.35-7.45)
[2018-09-11 08:24] LABS: MODALITY CANNULA
--- NOTE | 2018-09-11 08:40 | PROGRESS NOTE ---
DATE: 09/11/2018 SUBJECTIVE: The patient is sleepy, but arousable. She is confused. She is able to follow simple commands on and off. She is weak, she is not answering my questions and when she talks, it is really hard to understand. Her son is at the bedside. He is deaf, but I talked to him and also her daughter by phone through face time or something similar, and they have decided to put her mom DNR level 1. She is not having any respiratory distress. She may have delirium due to this hospitalization, she is not eating or drinking too much, so I will give her an extra dose of normal saline since she has acute kidney injury, which can contribute also to her confusion. OBJECTIVE: Vital Signs: Temperature 98.4 degrees, pulse 78, respiratory rate 19, blood pressure 134/57, oxygen saturation 96 on 3 L of nasal cannula. HEENT: Head normocephalic, no trauma. PERRLA. Her mouth is dry. Neck: Supple. No JVD. Central trachea. Chest: Clear to auscultation. Some crepitus at the bases, scattered. Cardiovascular: RRR. Abdomen: Soft, protuberant. No hepatosplenomegaly. No pain. Extremities: No edema, no clubbing, no cyanosis. Neurological examination: This patient is sleepy, but arousable. She is confused. It is really hard to understand what she says. She is following commands on and off, but is not consistent. She is moving all 4 extremities spontaneously. I do not see any facial deviation or weakness. She does have generalized weakness, though. LABORATORY: WBC 11.1, hemoglobin 9.6, hematocrit 32.6, platelets 336. Sodium 142, potassium 3.9, chloride 101, bicarbonate 29. BUN 32, creatinine 1.5, glucose 121, calcium 10.3. ASSESSMENT AND PLAN: 1. Acute hypoxemic respiratory failure, likely due to left lower lobe pneumonia and bilateral acute pulmonary edema. Her BUN and creatinine increased, likely due to Lasix. She received 1 L of fluid, but she still looks dry. I will give her an extra dose of normal saline, 1 L slowly. Kidney function looks a bit better compared with yesterday. I will also check a urine culture. I will check ABGs today and tomorrow, and an x-ray. 2. Acute diastolic congestive heart failure. She seems to be better. Intravenous Lasix has been stopped. We will continue to monitor. 3. Atrial fibrillation with rapid ventricular response, resolved. At this moment she is in sinus rhythm. We will continue to monitor. Her CHADSVASc score is at least 4. Apparently the previous doctor discussed with the daughter about the risks and benefits of anticoagulation, and she preferred to start anticoagulation on this patient. At this moment she is on enoxaparin. 4. Microcytic anemia. Continue with iron supplementation and probably she will need to get a follow-up with Gastroenterology as an outpatient. No signs of bleeding at this moment. 5. Acute encephalopathy on top of probably mild cognitive impairment and suspected early dementia. Also, this could be related to delirium due to this hospitalization, and other possibility uremia. I will hydrate this patient gently at this moment. I will request physical therapy evaluation and occupational therapy as well. I will continue to monitor this closely. CT scan of the head is negative. If she continues to be confused, probably we need to get Neurology Department on board. 6. Apparently, she has a history of asthma. She used to be on breathing treatment, but that has been stopped due to tremors. We will monitor for now. She is not complaining of shortness of breath, but she is still on oxygen. I am not quite sure if she has been with oxygen at home. 7. Hypertension. Continue with same management. 8. Acute on chronic kidney disease. She received a liter of fluid yesterday, and the creatinine improved from 1.8 to 1.5. It looks like her baseline is around 1.1. I will give her an extra amount of fluid today x1 and I will monitor. 9. Disposition: It looks like this patient has a rehabilitation center set up already for her. She can go this Saturday, but at this moment she is confused. So, I will continue working on this patient and I will discharge her once she is more stable. cc: Joe Lerma MD
--- NOTE | 2018-09-11 09:15 | Diag Imaging Result Doc PS360 ---
EXAM: CHEST-PORTABLE 09/11/2018 HISTORY: Pneumonia TECHNIQUE: AP portable at 0817 COMMENT: There is cardiomegaly. The right apical opacity present on 09/08/2018 has apparently diminished otherwise are has been no significant change. IMPRESSION: Improved right apical pneumonia. Cardiomegaly. Electronically signed by Asher Jara 09/11/2018 9:12 AM
[2018-09-11] MEDS: PROTONIX PO SCH (10:33)
[2018-09-11] MEDS: DITROPAN PO SCH (10:33)
[2018-09-11] MEDS: LEXAPRO PO SCH (10:34)
[2018-09-11] MEDS: FERROUS SULFATE PO SCH (10:34)
[2018-09-11] MEDS: ASPIRIN PO SCH (10:34)
[2018-09-11] MEDS: NORVASC PO SCH (10:34)
[2018-09-11] MEDS: ZYLOPRIM PO SCH (10:34)
[2018-09-11] MEDS: TOPROL XL PO SCH ×2 (10:34→22:44)
[2018-09-11] MEDS: LEVAQUIN 750 MG/D5W 750 MG/150 ML IVPB IV SCH (10:35)
[2018-09-11] MEDS: XYLOCAINE 2% VISCOUS MT SCH ×2 (11:29→17:57)
[2018-09-11] MEDS ORDERED: DIFLUCAN PO ONE (12:50)
[2018-09-11] MEDS: LOVENOX SUBQ SCH ×2 (15:09→17:48)
[2018-09-12] MEDS: CARDIZEM PO SCH ×3 (01:09→15:09)
[2018-09-12 03:30] LABS: ALLEN TEST YES; BE 5.4 mmoll (-3.0-3.0); BLOOD TYPE ARTERIAL; HCO3-(ACT) 29.1 mmoll (20.0-26.0); O2(CT) 12.3 mL/dL (15.0-23.0); O2HB 96.1 % (95.0-99.0); PCO2(98.6) 43 mmHg (35-45); PO2(98.6) 94 mmHg (60-100); SAMPLE BLOOD; SAO2 98.5 % (95.0-100.0); pH(98.6) 7.45 (7.35-7.45)
[2018-09-12 03:31] LABS: MODALITY CANNULA
[2018-09-12 05:55] LABS: BASO# 0.05 X1000 (0.0-0.2); BASO% 0.5 % (0.0-0.8); EOS# 0.39 X1000 (0.0-0.7); EOS% 3.7 % (0.0-10.0); HEMATOCRIT 32.2 % (37.0-47.0); HEMOGLOBIN 9.1 g/dL (12.0-16.0); IMM GRAN# 0.04 X1000 (0.0-0.04); IMM GRAN% 0.4 % (0.0-0.5); LYMPH# 1.76 X1000 (1.2-3.4); LYMPH% 16.6 % (20.5-51.1); MCH 20.5 PG (27-31); MCHC 28.3 g/dL (33-37); MCV 72.7 FL (81-99); MONO# 1.03 X1000 (0.11-0.59); MONO% 9.7 % (1.7-9.3); NEUT# 7.33 X1000 (1.4-6.5); NEUT% 69.1 % (42.2-75.2); PLT 329 X1000 (130-400); RBC 4.43 XMIL (4.2-5.4); RDW 17.7 % (11.5-14.5)
[2018-09-12 06:28] LABS: ALB/GLOB RATIO 0.8; ALBUMIN 2.7 g/dL (3.5-5.0); CALCIUM 10.1 mg/dL (8.8-10.2); CREATININE 1.3 mg/dL (0.5-0.9); POTASSIUM 4.6 mmol/L (3.5-5.1); TOTAL BILIRUBIN 0.4 mg/dL (0.20-1.00); TOTAL PROTEIN 5.9 g/dL (6.3-8.3)
[2018-09-12] MEDS: XYLOCAINE 2% VISCOUS MT SCH ×2 (06:29→08:17)
--- NOTE | 2018-09-12 07:01 | Diag Imaging Result Doc PS360 ---
EXAM: CHEST-PORTABLE 09/12/2018 HISTORY: dyspnea TECHNIQUE: AP portable at 0558 COMMENT: There is cardiomegaly. The inspiration is suboptimal. Considering the degree of inspiration there has been no significant change since 09/11/2018. IMPRESSION: Stable chest. Electronically signed by Asher Jara 09/12/2018 6:58 AM
[2018-09-12] MEDS: LEXAPRO PO SCH (08:16)
[2018-09-12] MEDS: ASPIRIN PO SCH (08:16)
[2018-09-12] MEDS: TOPROL XL PO SCH ×2 (08:17→21:07)
[2018-09-12] MEDS: ZYLOPRIM PO SCH (08:17)
[2018-09-12] MEDS: PROTONIX PO SCH (08:17)
[2018-09-12] MEDS: DITROPAN PO SCH (08:17)
[2018-09-12] MEDS: FERROUS SULFATE PO SCH (08:17)
[2018-09-12] MEDS: NORVASC PO SCH (08:17)
--- NOTE | 2018-09-12 09:09 | PROGRESS NOTE ---
DATE: 09/12/2018 SUBJECTIVE: This patient is resting comfortably in bed. She is not agitated. She was sleeping and woke up for my physical exam. She is able to say her name and date of . She is following commands on and off and she is still confused. Her son is at the bedside. Her son is deaf but I also talked at the same time with her daughter through face time and at the same time with the son. X-ray with no big changes compared with yesterday. BUN and creatinine better. The highest was 1.8 and today it is 1.3. She is normally around 1.1. I have requested to increase physical therapy to twice a day and I want this patient to move around a little more. I want to decrease the amount of sleep time during the day. OBJECTIVE: VITAL SIGNS: Temperature 98.4 degrees, pulse 75, respiratory rate 16, blood pressure 153/71, oxygen saturation 96 on 4 liters of nasal cannula. HEENT: Head normocephalic, no trauma. PERRLA. Her mouth looks moist. NECK: Supple. No JVD. Central trachea. CHEST: Some crepitus at the bases. Decreased breath sounds at the bases as well. CARDIOVASCULAR: RRR. ABDOMEN: Soft, protuberant, no organomegaly. No pain. EXTREMITIES: No edema. No clubbing. No cyanosis. NEUROLOGICAL: The patient was sleeping but she woke up for my physical exam. She is confused. She is able to say her name and date of . She is following commands on and off but she is not consistent. She moves all 4 extremities spontaneously. I do not see any facial deviation or weakness. She does have generalized weakness though. LABORATORY DATA: WBC 10.6, hemoglobin 9.1, hematocrit 32.2, platelets 329,000. Sodium 141, potassium 4.6, chloride 105, bicarbonate 23, BUN 25, creatinine 1.3, glucose 119. Calcium 10.1. AST 36, ALT 12, alkaline phosphatase 91. ASSESSMENT AND PLAN: 1. Acute hypoxemic respiratory failure likely due to left lower lobe pneumonia and bilateral acute pulmonary edema. BUN and creatinine were elevated but now they are trending down on a daily basis. I will not give her a dose of normal saline today. We will try to move more this patient around and try to keep her awake most of the day so she can sleep during the night. X-ray with no big changes and ABGs are stable. We will continue with same management for now. 2. Acute diastolic congestive heart failure. She seems to be better. She received IV Lasix. We will monitor. 3. Atrial fibrillation with RVR, resolved. At this moment, she is in sinus rhythm. We will continue to monitor. Her [id number] score is at least 4. Continue with Lovenox. Apparently the previous doctor discussed with the daughter about the risks and benefits of anticoagulation and she preferred to start anticoagulation on this patient. At this moment, she is on enoxaparin. 4. Microcytic anemia. Continue with iron supplementation and probably she will need to get a followup with GI as an outpatient. No signs of bleeding at this moment. 5. Acute encephalopathy on top of probably mild cognitive impairment and suspected early dementia. Also, this could be related to delirium due to this hospitalization. Other possibility is uremia. She seems to be hydrated today. I have requested physical therapy and occupational therapy to work on this patient at least twice a day. We will continue to monitor this patient closely. CT scan of the head is negative. 6. Probably history of asthma. Stable at this moment. 7. Hypertension. Continue same management. 8. Acute on chronic kidney disease. BUN and creatinine are better today. Improved from 1.8 to 1.5 and today the creatinine is 1.3. Her baseline is around 1.1. DISPOSITION: It looks like this patient had a rehab center set up already for her, but she is still confused and we are still working on this patient. Probably she will need to spend the weekend here. She is still requiring oxygen as well. cc: Joe Lerma MD
[2018-09-12] MEDS: LOVENOX SUBQ SCH (15:09)
[2018-09-13] MEDS: CARDIZEM PO SCH ×3 (00:40→18:11)
[2018-09-13 06:02] LABS: HEMATOCRIT 31.6 % (37.0-47.0); MCH 20.6 PG (27-31); MCHC 28.5 g/dL (33-37); MCV 72.5 FL (81-99); MPV 12.9 FL (7.4-10.4); RBC 4.36 XMIL (4.2-5.4); RDW 17.3 % (11.5-14.5); WBC 9.08 X1000 (4.8-10.8)
[2018-09-13 06:36] LABS: CALCIUM 10.4 mg/dL (8.8-10.2); POTASSIUM 3.8 mmol/L (3.5-5.1)
--- NOTE | 2018-09-13 08:39 | PROGRESS NOTE ---
DATE: 09/13/2018 SUBJECTIVE: Patient is resting comfortably in bed. She is not complaining of pain at this moment. She is not agitated, she was sleeping and I woke her up for my physical exam. She was able to say her name, date of . She is following commands. She was able to say her daughter and son's name, she seems to be more alert when she talks. Laboratory seems to be stable, BUN and creatinine at baseline. OBJECTIVE: Vital Signs: Temperature 97.4 degrees, pulse 63, respiratory rate 18, blood pressure 151/49, oxygen saturation 97% on 2 L of nasal cannula. HEENT: Head normocephalic. No trauma. PERRLA. Neck: Supple. No JVD. Central trachea. Chest: Some crepitus at the bases, decreased breath sounds at the bases as well. Cardiovascular: Regular rate and rhythm. Abdomen: Soft, protuberant. No organomegaly. No pain. Extremities: No edema, no clubbing, no cyanosis. Neurological: This patient was sleeping but she woke up for my physical exam. She is not oriented to place or time. She is following commands and she is more constant with that. She is able to say her name and date of . She is able to say the name of her son and daughter. She moves all 4 extremities spontaneously. She does have generalized weakness. I think she is more awake. LABORATORY DATA: WBC 9, hemoglobin 9, hematocrit 31.6, platelets 312,000. Sodium 145, potassium 3.8, chloride 108, bicarbonate 29, BUN 25, creatinine 1, glucose 123, calcium 10.4. ASSESSMENT AND PLAN: 1. Acute hypoxemic respiratory failure, likely due to left lower lobe pneumonia and bilateral pulmonary edema. BUN and creatinine were elevated but now seems to be at baseline. She has been tolerating diet a little bit. I told the patient that she needs to eat more. I will continue with the same management right now. 2. Acute diastolic congestive heart failure. She seems to be doing better. She received IV Lasix at the beginning. We will monitor for now. 3. Atrial fibrillation with rapid ventricular response, resolved. At this moment she is in sinus rhythm. We will continue to monitor. Her [id number] score is at least 4. We will continue with Lovenox. Apparently the previous doctor discussed the case with the daughter and also the risks and benefits of anticoagulation, and she preferred to start anticoagulation on this patient. At this moment, she is on enoxaparin. 4. Microcytic anemia. We will continue with iron supplementation. Probably she will need to get a GI evaluation as an outpatient. 5. Acute encephalopathy on top of probably mild cognitive impairment and suspected early dementia. Also, this could be related to delirium due to this hospitalization and/or uremia. I believe she is getting better. She is answering and following my questions more consistent. I will continue to monitor. CT scan of the head is negative. 6. Probably history of asthma, stable at this moment. 7. Hypertension. Continue with same management. 8. Acute on chronic kidney disease, resolved. This is her baseline. 9. Disposition. I think this patient is getting better slowly. Her kidney function is better. White blood cell count is normal and she is more awake and answering and following commands consistently. We will monitor. Probably she will need to go to a rehab center this Saturday. cc: Joe Lerma MD
[2018-09-13] MEDS: LEVAQUIN 750 MG/D5W 750 MG/150 ML IVPB IV SCH (09:17)
[2018-09-13] MEDS: LEXAPRO PO SCH (09:18)
[2018-09-13] MEDS: PROTONIX PO SCH (09:18)
[2018-09-13] MEDS: FERROUS SULFATE PO SCH (09:18)
[2018-09-13] MEDS: ASPIRIN PO SCH (09:18)
[2018-09-13] MEDS: TOPROL XL PO SCH ×2 (09:18→20:13)
[2018-09-13] MEDS: NORVASC PO SCH (09:18)
[2018-09-13] MEDS: DITROPAN PO SCH (09:18)
[2018-09-13] MEDS: XYLOCAINE 2% VISCOUS MT SCH (09:19)
[2018-09-13] MEDS: ZYLOPRIM PO SCH (09:20)
[2018-09-13] MEDS: LOVENOX SUBQ SCH (18:11)
[2018-09-14] MEDS: CARDIZEM PO SCH ×3 (00:07→16:56)
[2018-09-14 06:15] LABS: EOS% 2.9 % (0.0-10.0); HEMATOCRIT 30.6 % (37.0-47.0); HEMOGLOBIN 8.8 g/dL (12.0-16.0); LYMPH% 24.6 % (20.5-51.1); MCH 20.7 PG (27-31); MCHC 28.8 g/dL (33-37); MONO% 7.2 % (1.7-9.3); MPV 12.2 FL (7.4-10.4); NEUT% 64.3 % (42.2-75.2); PLT 298 X1000 (130-400); RBC 4.25 XMIL (4.2-5.4); RDW 17.3 % (11.5-14.5); WBC 9.53 X1000 (4.8-10.8)
[2018-09-14 06:16] LABS: BASO# 0.05 X1000 (0.0-0.2); BASO% 0.5 % (0.0-0.8); EOS# 0.28 X1000 (0.0-0.7); IMM GRAN# 0.05 X1000 (0.0-0.04); IMM GRAN% 0.5 % (0.0-0.5); LYMPH# 2.34 X1000 (1.2-3.4); MONO# 0.69 X1000 (0.11-0.59); NEUT# 6.12 X1000 (1.4-6.5)
[2018-09-14 06:18] LABS: CALCIUM 10.5 mg/dL (8.8-10.2); CREATININE 1.2 mg/dL (0.5-0.9); POTASSIUM 3.8 mmol/L (3.5-5.1)
--- NOTE | 2018-09-14 07:04 | Diag Imaging Result Doc PS360 ---
EXAM: CHEST-PORTABLE 09/14/2018 HISTORY: dyspnea TECHNIQUE: AP portable at 0551 COMMENT: The appearance the chest has not changed significantly since 09/12/2018. The inspiration is suboptimal. There is questionable opacity in the left lower lobe. IMPRESSION: Stable chest. Electronically signed by Asher Jara 09/14/2018 7:02 AM
[2018-09-14 07:15] LABS: ANISOCYTOSIS 1+; LYMPHS 22 % (21-51); MONO 5 % (1-9); SEGS 73 % (42-75)
--- NOTE | 2018-09-14 08:38 | PROGRESS NOTE ---
DATE: 09/14/2018 SUBJECTIVE: The patient is resting comfortably in bed. She is not complaining of pain at this moment. She is not agitated. As per report by the nurse, she had been awake yesterday during the day. She was able to feed herself and she was taking her medications, which she was not doing before. She seems to be stronger. She seems to be more alert and following commands constantly but she is still confused. She is alert to person. She knows the name of the son and daughter, date of . She is not oriented to time or place. I do not see any focal weakness. LABORATORY: WBC 9.5, hemoglobin 8.8, hematocrit 30.6, platelets 298,000. Sodium 144, potassium 3.8, chloride 108, bicarbonate 28, BUN 24, creatinine 1.2, glucose 121, calcium 10.5. PHYSICAL EXAMINATION: Vital Signs: Temperature 98.9 degrees, pulse 67, respiratory rate 18, blood pressure 140/51, oxygen saturation 96% on 2 L of nasal cannula. HEENT: Head normocephalic. No trauma. PERRLA. Neck: Supple. No JVD. No masses. Central trachea. Chest: Some crepitus at the bases. Decreased breath sounds at the bases as well. Cardiovascular: RRR. Abdomen: Soft, protuberant. No organomegaly. No pain. Extremities: No edema, no clubbing, no cyanosis. Neurological Examination: This patient is awake. She is alert. She is oriented to person and date of . She is able to say her son's and daughter's name. She is following commands constantly. She is moving all 4 extremities spontaneously. ASSESSMENT AND PLAN: 1. Acute hypoxemic respiratory failure, likely due to left lower lobe pneumonia and bilateral pulmonary edema. BUN and creatinine were elevated and now seems to be at baseline. She has been tolerating her diet and actually she has been feeding herself since yesterday. She seems to be more awake. 2. Acute diastolic congestive heart failure. She seems to be doing better. She received intravenous Lasix at the beginning of this hospitalization. We will monitor for now. 3. Acute encephalopathy on top of probably mild cognitive impairment and suspected early dementia. Also, this could be related to delirium due to this hospitalization and/or uremia, but I believe this is getting better. She is answering some of my questions and following commands as well consistently. We will continue to monitor. CT scan of the head is negative. 4. Atrial fibrillation with rapid ventricular response, resolved. At this moment, she is in sinus rhythm. We will continue to monitor her chest tube. VASc score is at least 4. We will continue with Lovenox. Apparently, the prior doctor discussed the case with the daughter and also they talked about the risks and benefits of anticoagulation. She preferred to start anticoagulation on this patient at this moment. She is on enoxaparin. 5. Microcytic anemia. Continue with iron supplementation. 6. History of asthma, stable. 7. Hypertension. Continue with the same management. 8. Acute on chronic kidney disease, resolved. This is her baseline. 9. Disposition. I think this patient is getting better slowly. Laboratory seems to be more stable, as well as the patient. She started feeding herself yesterday and she is more cooperative. She now is getting her treatment completely. She was refusing that before. cc: Joe Lerma MD
[2018-09-14] MEDS: ZYLOPRIM PO SCH (09:24)
[2018-09-14] MEDS: NORVASC PO SCH (09:24)
[2018-09-14] MEDS: LEXAPRO PO SCH (09:24)
[2018-09-14] MEDS: PROTONIX PO SCH (09:24)
[2018-09-14] MEDS: DITROPAN PO SCH (09:24)
[2018-09-14] MEDS: FERROUS SULFATE PO SCH (09:24)
[2018-09-14] MEDS: ASPIRIN PO SCH (09:24)
[2018-09-14] MEDS: TOPROL XL PO SCH ×2 (09:27→21:09)
[2018-09-14] MEDS: XYLOCAINE 2% VISCOUS MT SCH (09:57)
[2018-09-14] MEDS: LOVENOX SUBQ SCH (16:56)
[2018-09-15] MEDS: CARDIZEM PO SCH ×2 (01:20→08:56)
[2018-09-15 06:05] LABS: CALCIUM 10.1 mg/dL (8.8-10.2); CREATININE 1.1 mg/dL (0.5-0.9)
[2018-09-15 07:45] VITALS: BP 154/45
[2018-09-15] MEDS: LEXAPRO PO SCH (08:55)
[2018-09-15] MEDS: TOPROL XL PO SCH (08:55)
[2018-09-15] MEDS: ASPIRIN PO SCH (08:55)
[2018-09-15] MEDS: PROTONIX PO SCH (08:55)
[2018-09-15] MEDS: NORVASC PO SCH (08:55)
[2018-09-15] MEDS: FERROUS SULFATE PO SCH (08:56)
[2018-09-15] MEDS: ZYLOPRIM PO SCH (08:56)
[2018-09-15] MEDS: LEVAQUIN 750 MG/D5W 750 MG/150 ML IVPB IV SCH (08:56)
[2018-09-15] MEDS: DITROPAN PO SCH (08:56)
[2018-09-15] MEDS ORDERED: ELIQUIS PO SCH (09:00)
--- NOTE | 2018-09-15 09:05 | EKG Report ---
Test Performed on : 09/13/2018 11:30:39 AM Test Reason : bradycardia Blood Pressure : / mmHG Vent. Rate : 043 BPM Atrial Rate : 041 BPM P-R Int : 176 ms QRS Dur : 088 ms QT Int : 464 ms P-R-T Axes : 044 -16 044 degrees QTc Int : 392 ms Marked sinus bradycardia. with premature atrial complexes. Voltage criteria for left ventricular hypertrophy Abnormal ECG When compared with ECG of September 11, 2018- Sinus bradycardia has replaced atrial fibrillation Rate has decreased by 49 beats per minute Confirmed by Nestor Peace MD ([id number]) on 09/16/2018 9:58:47 PM
--- NOTE | 2018-09-15 09:07 | PROGRESS NOTE ---
DATE: 09/15/2018 SUBJECTIVE: This patient is resting comfortably in bed. Her son is at the bedside. She is not agitated. She is following commands. She is able to say her name. As per the son, she spent the whole day sitting in bed in a recliner, and he helps to put her on the toilet or bed, but she is able to feed herself at home, and here she has been getting some help, so we believe it is going to be good if we send this patient to a rehab center so she can get her strength back. OBJECTIVE: Vital Signs: Temperature 97.7 degrees, pulse 62, respiratory rate 18, blood pressure 154/45, oxygen saturation 98 on 2 L of nasal cannula. HEENT: Head normocephalic. No trauma. PERRLA. Neck: Supple. No JVD. No masses. Central trachea. Chest: Some crepitus at the bases. Decreased breath sounds at the bases as well. Cardiovascular: RRR. Abdomen: Soft, protuberant. No organomegaly. No pain. Extremities: No edema, no clubbing, no cyanosis. Neurological: This patient is sleepy, but arousable. She is following commands for me. She is oriented to person and date of . She is able to say her son's name, and she is able to recognize him. She moves all 4 extremities spontaneously. LABORATORY DATA: Sodium 144, potassium 4, chloride 107, bicarbonate 29, BUN 24, creatinine 1.1, glucose 138, calcium 10.1. ASSESSMENT AND PLAN: 1. Acute on chronic hypoxemic respiratory failure, likely due to left lower lobe pneumonia and bilateral pulmonary edema. BUN and creatinine at baseline. She has been tolerating her diet. She seems to be stronger and less confused. 2. Acute diastolic congestive heart failure. She seems to be doing good. She received intravenous Lasix at the beginning of this hospitalization. Will monitor for now. 3. Acute encephalopathy on likely [id number] cognitive impairment. As per the son, she has some dementia. She has been confused during this hospitalization. Also, this could be related to delirium, uremia, but I believe this is getting better. She is following commands consistently. CT of the head is negative. 4. Atrial fibrillation with rapid ventricular response, resolved. She is in sinus rhythm. Will continue to monitor her heart rate. Continue with anticoagulation, which I will switch to Eliquis. Her dose will be 5 mg by mouth twice daily since her weight is more than 60 kg and her creatinine is stable at 1.1. 5. Microcytic anemia. Continue with iron supplementation. 6. History of asthma, stable. 7. Hypertension. Will continue with the same management. 8. Acute on chronic kidney disease, resolved. This is her baseline. 9. Disposition. I think this patient is getting better slowly. Laboratory seems to be better as well and stable. She is following commands consistently. She is able to say her name, and she is recognizing her son at the bedside. She has generalized weakness, and as per the son, she is always sitting at home. She is not able to walk, but she was able to feed herself. They are planning to send this patient to a rehab center. cc: Joe Lerma MD
[2018-09-15] MEDS: XYLOCAINE 2% VISCOUS MT SCH (09:14)
--- NOTE | 2018-09-15 11:07 | DISCHARGE SUMMARY ---
ADMISSION DATE: 09/07/2018 DISCHARGE DATE: DISCHARGE DIAGNOSES: 1. Acute on chronic hypoxemic respiratory failure, likely due to left lower lobe pneumonia. 2. Left lower lobe pneumonia. 3. Acute diastolic congestive heart failure exacerbation, resolved. 4. Acute encephalopathy. 5. Dementia. 6. Atrial fibrillation with rapid ventricular response, resolved. 7. Microcytic anemia. 8. History of asthma. 9. Hypertension. 10. Acute on chronic kidney disease, resolved. PROCEDURES PERFORMED: 1. Chest x-ray dated 09/07/2018. Impression: Cardiomegaly and pulmonary vascular congestion, infiltrate in the left lung suggesting pneumonia or edema. 2. Echocardiogram dated 09/07/2018. Finding: Mild tricuspid regurgitation. Pulmonary hypertension. Mild pulmonic insufficiency. Mitral annular calcification is noted with mild mitral regurgitation. Normal left ventricular systolic function, calculated ejection fraction around 67%, mild aortic stenosis, mild aortic insufficiency. 3. Chest x-ray dated 09/08/2018. Impression: Persistent cardiomegaly and pulmonary edema. 4. Head CT dated 09/10/2018. Impression: No acute process. 5. Chest x-ray dated 09/11/2018. Improved right apical pneumonia, cardiomegaly. 6. Chest x-ray dated 09/12/2018. Impression: Stable chest. 7. Chest x-ray dated 09/14/2018. Impression: Stable chest. No big changes compared with 09/12/2018. HOSPITAL COURSE: An 88-year-old female with a past medical history of hypertension, GERD, hyperlipidemia, anxiety, insomnia, gout, dementia, admitted on 09/07/2018 due to shortness of breath and some wheezing that has been on and off for several months, weakness. She had an x- ray of her foot that did not show anything, but as per the family, probably she twisted her ankle. She had a son at the bedside, who is deaf, as well as a caregiver who is deaf as well. Workup in the emergency department showed an elevated white blood count of 13. Chest x-ray showed cardiomegaly, pulmonary vascular congestion, and left lower infiltrate suggesting pneumonia. She reported feeling hot the previous night, coughing which is nonproductive. Initially reported some altered mental status. However, the family did not write this down or tell the practitioner upon admission over the phone that she was confused. She denied any headache, fever, chills, chest pain, palpitation, nausea, vomiting, diarrhea, dysuria; however, the son at the bedside wrote down that he has been taking his mom to the restroom multiple times during the night. She was admitted. She was placed on antibiotics. Initially she received some IV fluids for probably an acute on chronic kidney disease. She was hypoxemic, but she is on home O2 as well, as per the son 2 L. Fluids were stopped due to pulmonary edema, and she was placed on Lasix. Due to her anemia also she was placed on iron. Then, she started having atrial fibrillation with rapid ventricular response, and she did not have a history of that. She was placed on diltiazem drip. She was transferred to the [facility]. Her CHADS2-VASc score is at least 4, and she started receiving anticoagulation. At that moment, the doctor talked to the daughter and discussed the risks of and benefits of anticoagulation and she preferred to start anticoagulation on this patient. Because of confusion, a CT of the head was done, but that did not show any acute abnormality. She was improving on a daily basis. She seems to be a little bit stronger. She is still confused, but probably this could be also related to delirium due to this hospitalization and acute on chronic kidney disease. Basically this could be multifactorial, and also as per the son, this patient has some dementia as well that could be aggravated due to her multiple comorbidities. This patient seems to be stable. She is really weak. As per the son, she does not walk at home, and he needs to transfer her from one place to another, but she was able to feed herself. This patient will be discharged to a rehabilitation center. We will finish the treatment with levofloxacin that she needs to receive 3 more days. She will go with diltiazem and metoprolol. DISPOSITION: She will be discharged to a rehabilitation center. OBJECTIVE: Vital Signs: Temperature 97.7 degrees, pulse 62, respiratory rate 18, blood pressure 154/45, oxygen saturation 98 on 2 L of nasal cannula. HEENT: Head normocephalic, no trauma. PERRLA. Neck: Supple. No JVD. No masses. Central trachea. Chest: Some crepitus at the bases. Decreased breath sounds at the bases as well. Cardiovascular: RRR. Abdomen: Soft, protuberant. No organomegaly. Extremities: No edema, no clubbing, no cyanosis. Neurological: This patient is awake. She is alert. She is following commands. She is oriented to person and date of . She is able to recognize her son at the bedside. LABORATORY: Sodium 144, potassium 4, chloride 107, bicarbonate 29, BUN 24, creatinine 1.1 glucose 138, calcium 10.1. DISCHARGE MEDICATIONS: 1. Tylenol 650 mg p.o. q.4 h. as needed. 2. Allopurinol 100 mg p.o. daily. 3. Amlodipine 10 mg p.o. daily. 4. Eliquis 5 mg p.o. b.i.d. 5. Aspirin 81 mg p.o. daily. 6. Diltiazem 30 mg p.o. q.8 h. 7. Lexapro 10 mg p.o. daily. 8. Ferrous sulfate 325 mg p.o. daily. 9. Levofloxacin 500 mg p.o. daily x3 doses. 10. Metoprolol succinate 50 mg p.o. q.a.m., 50 mg p.o. at bedtime. 11. Ditropan 10 mg p.o. daily. 12. Pantoprazole 40 mg p.o. daily. FOLLOW-UP: Follow up with her primary care doctor in 3 weeks. Please call Cardiology Department, Dr. Barksdale, to monitor her atrial fibrillation and heart failure. Follow up with Cardiology in 1 to 2 months. COORDINATION TIME: Time discharging this patient 35 minutes. cc: Joe Lerma MD MTDD
== END 2018-09-15 13:20 | DRG 193 ==
LOC: ED 09:40 → 3N 09:41 → SUATTDRO 09:41 → 3N 16:19 → 3S 09-09 21:32
PROVIDERS: ATTEND Internal Medicine
CPT/HCPCS: 70450; 71010; 71020; 71045; 71046; 80048; 80053; 81001; 82550; 82728; 82805; 82948; 83540; 83550; 83605; 83735; 83880; 84484; 85025; 85027; 85610; 85730; 87040; 87088; 87449; 87899; 93005; 93010; 93306; 94640; 94660; 94761; 94799; 97110; 97162; 97167; 97530; 97535; 99285; A9270; J1650; J1940; J1956; J7030; XXXXX

== ENCOUNTER 2018-10-08 08:27 | Inpatient (IN) ==
--- NOTE | 2018-10-08 08:59 | PROVIDER DOCUMENTATION ---
HPI-General Adult - General Chief Complaint: Abnormal Lab[s] Stated Complaint: needs labwork Time Seen by Provider: 10/08/18 08:39 Source: patient Allergies/Adverse Reactions: Patient Allergies Allergy/AdvReac Type Severity Reaction Status Date / Time codeine Allergy Unknown Verified 10/08/18 09:12 Home Medications: Home Medication List Medication Instructions Recorded Confirmed Last Taken Type Aspirin 81 mg PO DAILY 06/25/13 09/07/18 10/06/17 09:00 History Pantoprazole Sodium [Protonix] 40 mg PO DAILY 06/25/13 09/07/18 10/06/17 09:00 History Allopurinol 100 mg PO DAILY 09/24/17 09/07/18 10/06/17 09:00 History Oxybutynin [Ditropan] 10 mg PO DAILY 09/24/17 09/07/18 10/06/17 09:00 History Amlodipine [Norvasc] 10 mg PO DAILY #90 tab 09/26/17 09/07/18 10/06/17 09:00 Rx Escitalopram Oxalate [Lexapro] 10 mg PO DAILY 09/07/18 09/07/18 Unknown History Metoprolol Succinate E.r. [Toprol 50 mg PO QAM 09/07/18 09/07/18 Unknown History Xl] Acetaminophen [Tylenol] 650 mg PO Q4H PRN PRN tab 09/15/18 Unknown Rx Apixaban [Eliquis] 5 mg PO BID #120 tab 09/15/18 Unknown Rx Diltiazem [Cardizem] 30 mg PO Q8H #180 tab 09/15/18 Unknown Rx Ferrous Sulfate 325 mg PO DAILY tab 09/15/18 Unknown Rx Levofloxacin [Levaquin] 500 mg PO DAILY #3 tab 09/15/18 Unknown Rx Metoprolol Succinate E.r. [Toprol 50 mg PO QHS #60 tab 09/15/18 Unknown Rx Xl] - History of Present Illness -Gen Adult Nature of Presenting Problems: 88 y/o WF sent to ER from [place] after 2 lab test showed low H/H for the past 2 days. Todays [place] CBC said Hemoglobin 5.8. Pt denies any problems in the ER and states she isnt sure why they sent her here. Location of Pain/Injury: reports: none Pain Radiation: reports: no radiation Quality of Pain: reports: none Severity: reports: mild Onset/Duration: reports: 2 days ago Timing: reports: still present Context/Activities at Onset: reports: none Modifying Factors: improves with: nothing Associated Symptoms: reports: denies symptoms Similar Symptoms Previously?: No Recently seen or treated by another doctor?: No Review of Systems - Adult - REVIEW OF SYSTEMS - ADULT Constitutional: reports: no symptoms reported, see HPI Eyes: reports: no symptoms reported, see HPI Ears, Nose, Mouth & Throat: reports: no symptoms reported, see HPI Cardiovascular: reports: no symptoms reported, see HPI Respiratory: reports: no symptoms reported, see HPI Gastrointestinal: reports: no symptoms reported, see HPI Genitourinary: reports: no symptoms reported, see HPI Musculoskeletal: reports: no symptoms reported, see HPI Integumentary: reports: no symptoms reported, see HPI Neurological: reports: no symptoms reported, see HPI Psychiatric: reports: no symptoms reported, see HPI Endocrine: reports: no symptoms reported, see HPI Hematologic/Lymphatic: reports: no symptoms reported, see HPI Allergic/Immunologic: reports: no symptoms reported, see HPI All Other Systems: Reviewed and Negative Past History - Adult - PAST MEDICAL HISTORY-ADULT Review of Records: reports: Nursing Assessment Review, Medications Reviewed, Social history reviewed & non-contributory. Major Childhood Illnesses: reports: denies history Cardiovascular: reports: HTN, hyperlipidemia, murmur Respiratory: reports: asthma Gastrointestinal: reports: GERD Obstetrical/Gynecological: reports: denies history Genitourinary: reports: kidney disease Musculoskeletal: reports: denies history Neurological: reports: denies history Endocrine/Immune: reports: denies history Other Conditions: reports: denies history - PRIOR SURGERIES/PROCEDURES Surgical/Procedure History: reports: hysterectomy, orthopedic (extremity) (shoulder, leg), back/neck - PRIOR HOSPITALIZATIONS Prior Hospitalizations: reports: none - IMMUNIZATION STATUS Childhood Immunizations: See Nurse Assessment Flu Vaccine: See Nurse Assessment - FAMILY HISTORY Family History: reviewed, not pertinent Physical Exam-General - PHYSICAL EXAM-ADULT Initial Vital Signs Reviewed: Yes - CONSTITUTIONAL General Appearance: appears well, alert, no apparent distress - EYES Eyes: PERRL/EOMI - HEAD, EARS, NOSE, MOUTH & THROAT HENMT: normocephalic/atraumatic, moist mucous membranes - NECK Neck: non-tender, full range of motion, supple, normal inspection - RESPIRATORY Respiratory: chest non-tender, lungs clear, normal breath sounds - CARDIOVASCULAR Cardiovascular: normal peripheral pulses, regular rate, rhythm, no edema, no gallop, no JVD, no murmur - GASTROINTESTINAL (ABDOMEN) Abdominal Exam: normal bowel sounds, non tender, soft, no organomegaly, no pulsatile mass - LYMPHATIC Lymphatic: no adenopathy - MUSCULOSKELETAL Back Exam: normal inspection, no CVA tenderness, no vertebral tenderness Extremity: normal range of motion, non-tender, normal gait, normal inspection, no pedal edema, no calf tenderness, normal capillary refill - SKIN Integumentary: normal color, normal turgor - NEUROLOGIC 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, grossly normal, no motor/sensory deficits - PSYCHIATRIC Psych/Mental Status: normal mood/affect, normal thought content, normal thought process, oriented x 3 Progress - PLAN OF CARE/RESULTS Progress/Plan/Lab Results: Vital Signs - 8 hr 10/08/18 08:38 Temperature 98.1 F Pulse Rate 78 Respiratory Rate 16 Blood Pressure 116/42 O2 Sat by Pulse Oximetry 92 L Orders Category Date Time Status CBC WITH ELECTRONIC DIFF [HEME] Stat Lab 10/08/18 08:49 Uncollected COMPREHENSIVE METABOLIC PANEL [CHEM] Stat Lab 10/08/18 08:49 Uncollected OCCULT BLOOD SCREENING [STOOL] Stat Lab 10/08/18 08:49 Uncollected PROTIME WITH INR [COAG] Stat Lab 10/08/18 08:49 Uncollected PTT [COAG] Stat Lab 10/08/18 08:49 Uncollected Result Diagrams: 10/08/18 09:04 10/08/18 09:04 - CONSULTS/PCP/HOSPITALIST Notification #1 *Consult/PCP/Hospitalist*: Rosalinda WHEAT CLEANER with Dr Johnson Time Discussed: 10:01 Consult Disposition: Will see in ED, Admit Departure - Departure Date of Disposition Decision: 10/08/18 Time of Disposition Decision: 09:48 DIAGNOSIS: Chronic kidney disease, Anemia, GI bleed Disposition: ADMITTED INPATIENT 09 Certified Medical Emergency: Emergent Condition: Fair Referrals and Follow-Ups: Lincoln Colorado MD [Primary Care Provider] - - Critical Care Note This patient required my direct & personal management of CC.: No Attestation - Physician/ ANDREA Attestation Patient care was provided by Advanced Practice Provider:: No The physician spent face to face time with patient:: Yes Advanced Practice Provider documentation review:: Supervising physician onsite and consulted in the evaluation and care of this patient. The physician did have a face to face encounter with the patient.
[2018-10-08 09:31] LABS: BASO# 0.06 X1000 (0.0-0.2); BASO% 0.9 % (0.0-0.8); EOS# 0.33 X1000 (0.0-0.7); EOS% 5.1 % (0.0-10.0); HEMATOCRIT 22.9 % (37.0-47.0); HEMOGLOBIN 6.3 g/dL (12.0-16.0); IMM GRAN# 0.04 X1000 (0.0-0.04); IMM GRAN% 0.6 % (0.0-0.5); LYMPH# 1.29 X1000 (1.2-3.4); LYMPH% 20.1 % (20.5-51.1); MCH 20.6 PG (27-31); MCHC 27.5 g/dL (33-37); MCV 74.8 FL (81-99); MONO# 0.65 X1000 (0.11-0.59); MONO% 10.1 % (1.7-9.3); MPV 11.4 FL (7.4-10.4); NEUT# 4.04 X1000 (1.4-6.5); NEUT% 63.2 % (42.2-75.2); PLT 294 X1000 (130-400); RBC 3.06 XMIL (4.2-5.4); RDW 20.6 % (11.5-14.5); WBC 6.41 X1000 (4.8-10.8)
[2018-10-08 09:40] LABS: POTASSIUM 4.2 mmol/L (3.5-5.1)
[2018-10-08 09:41] LABS: ALB/GLOB RATIO 1.2; ALBUMIN 3.2 g/dL (3.5-5.0); CALCIUM 10.1 mg/dL (8.8-10.2); CREATININE 1.3 mg/dL (0.5-0.9); TOTAL BILIRUBIN 0.24 mg/dL (0.20-1.00); TOTAL PROTEIN 5.9 g/dL (6.3-8.3)
[2018-10-08 10:11] LABS: INR 1.61; PROTIME 19.4 Seconds (11.0-16.0); PTT 31.2 Seconds (22.3-41.8)
[2018-10-08 10:38] LABS: IRON SATURATION 4 %; TIBC 330 ug/dL; TOTAL IRON 13 ug/dL (49-151); UNBOUND IRON 317 ug/dL (112-346)
[2018-10-08] MEDS ORDERED: ZOFRAN IV PRN (10:55)
[2018-10-08] MEDS ORDERED: TYLENOL PO PRN ×2 (10:55→11:19)
[2018-10-08] MEDS ORDERED: NEXIUM IV SCH (10:55)
[2018-10-08] MEDS ORDERED: SODIUM CHLORIDE 0.9% INJ ONE (10:55)
--- NOTE | 2018-10-08 11:10 | HISTORY AND PHYSICAL ---
PRIMARY CARE PHYSICIAN: Dr. Lincoln Colorado. REASON FOR ADMISSION: Was sent to the emergency room after the [facility] ronak labs that showed she had a low hemoglobin and hematocrit. HISTORY OF PRESENTING ILLNESS: This is an 88-year-old female who presents to [facility] from [facility] in [place] after they ronak some labs and she was found to have a low hemoglobin and hematocrit with a reported hemoglobin of 5.8. The patient states that she has had some fatigue, no energy and increased sleeping noted. Denied any shortness of breath. States she was not aware of having any black tarry stools, but ER physician when he obtained her stool for occult blood, noted that it was black and tarry in nature and it was positive for blood. Her hemoglobin and hematocrit in the emergency room was 6.3 and 22.9, her creatinine was 1.3, so she will be admitted for further evaluation and treatment. 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 PAST SURGICAL HISTORY: A hysterectomy, shoulder surgery, back surgery and a left leg surgery with angus placement. FAMILY HISTORY: Father passed of an DC, mother passed of a CVA, sister passed of pancreatic cancer, and brother passed of pneumonia and end-stage renal disease. SOCIAL HISTORY: She is currently residing at [facility] in [place]. Denied any tobacco, alcohol or illicit drug use. ALLERGIES: Codeine. HOME MEDICATIONS: A current list will need to be obtained, reconciled, reviewed and restarted as appropriate. Placed an order for nursing to update and confirm home medications. LABORATORY DATA: Showed a white blood cell count of 6.41, hemoglobin 6.3, hematocrit 22.9, platelets 294,000. PT and INR of 19.4 and 1.61. Sodium 141, potassium 4.2, chloride 105, CO2 26, BUN of 21, creatinine 1.3, glucose 137. REVIEW OF SYSTEMS: She denied any fever, chills, blurred vision, dizziness. She did have fatigue and decreased energy and increased sleeping. Denied any chest pain, coughing, shortness of breath. Denied any abdominal pain, constipation, diarrhea, burning or hurting with urination. Is noted to have some black tarry stools. PHYSICAL EXAMINATION: VITAL SIGNS: On arrival, she had a temperature of 98.1 degrees, pulse 78, respirations 16, blood pressure 116/42, saturating 92% on room air. GENERAL: This is an 88-year-old female who is lying in the bed. Answers questions appropriately. HEENT: Normocephalic, atraumatic. Normal ENT inspection. Oropharynx and nares are clear. EYES: Pupils are equal, round, reactive to light and accommodation. Extraocular movements are intact. NECK: Normal inspection. Normal range of motion. LUNGS: Clear to auscultation bilaterally with equal lung expansion and chest wall movement. HEART: With regular rate and rhythm. No murmurs, rubs, or gallops. ABDOMEN: Soft, nontender, nondistended. Bowel sounds are present x4 quadrants. MUSCULOSKELETAL: She had 5/5 strength x4 extremities. NEUROLOGICAL: The cranial nerves 2-12 appear grossly intact. ASSESSMENT: 1. Gastrointestinal bleed. 2. Anemia, most likely iron deficient. 3. An acute kidney injury. 4. Gastroesophageal reflux disease, history of. PLAN: She will be admitted to the medical unit at [facility], placed on telemetry O2 per protocol. We will consult GI. Place on Nexium 40 mg IV every 24. Healthy heart diet. We are going to transfuse 2 units of packed red blood cells today. Check iron studies today. Update and confirm home medications. We will check a CBC and BMP in the a.m. Consult GI and further orders after seen by attending and by knowledge management consultant. Dictated by RADHA Govea for Josh Johnson MD cc: RADHA Govea MD Jay Pohl, MD
[2018-10-08 11:39] LABS: FERRITIN 34 ng/mL (13-150)
[2018-10-08] MEDS: NS 1,000 ML IV SCH (12:14)
[2018-10-08] MEDS: CARDIZEM PO SCH ×2 (12:14→21:29)
[2018-10-08] MEDS ORDERED: SODIUM CHLORIDE 0.9% 10 ML ONE (14:57)
--- NOTE | 2018-10-08 16:22 | HISTORY AND PHYSICAL ---
ADDENDUM: I agree with most components of the history, physical, assessment and plan. In brief, Ms. Martini is an 88-year-old lady with past medical history of paroxysmal atrial fibrillation, diastolic congestive heart failure, dementia, chronic hypoxic respiratory failure on home oxygen, asthma, recent admission for acute on chronic hypoxic respiratory failure from pneumonia who was at [facility] for rehab following recent [facility] and comes in as routine blood work there found she had drop in her hemoglobin to as low as 5.8. In the emergency room the patient has been hemodynamically stable and denies any complaints. Family is at bedside. The patient denies noticing any blood in the stool. She denies any known hemorrhoids. She denies any melena. She denies chest pain or shortness of breath. VITALS: Temperature 98.2, pulse 91, respirations 16, blood pressure 135/70s, saturation 96% on 2L cannula. PHYSICAL EXAMINATION: GENERAL: Obese, not in any acute distress. HEENT: Oral cavity is moist. LUNGS: Air entry bilaterally equal. Mild inspiratory crackles bilaterally infrascapular region. No wheeze or rhonchi. CARDIOVASCULAR: S1, S2 normal. Regular. No murmur, rub or gallop. ABDOMEN: Soft, nontender. EXTREMITIES: She does have bilateral lower extremity edema. NEUROLOGIC: She is alert. She is oriented to place, person and mostly the situation. She does have some memory impairment though. LABS: Suggestive of microcytic hypochromic anemia. INR 1.6 likely because of Eliquis use or chronic kidney disease Stage 3. Iron studies suggests iron deficiency. Stool occult blood test is positive.. ASSESSMENT: 1. Acute gastrointestinal bleed. 2. Acute blood loss anemia. 3. NSAID use for back pain at rehab and on Eliquis for atrial fibrillation. 4. Paroxysmal atrial fibrillation. 5. Chronic kidney disease Stage 3. 6. Diastolic congestive heart failure. 7. Constipation. PLAN: I will start the patient on intravenous proton pump inhibitor b.i.d. , give her blood transfusion and follow up repeat blood count after transfusion, start her on MiraLAX for constipation, resume her diltiazem for atrial fibrillation and hold Eliquis. I am also holding aspirin. Gastroenterology has been consulted for possible need for endoscopy. The plan of care discussed with the patient and family at bedside. All of their questions have been satisfactorily answered. cc: Josh Johnson MD MTDJon
[2018-10-08] MEDS: MIRALAX PO SCH ×2 (16:33→22:56)
[2018-10-08 18:26] LABS: URINE SOURCE CLEAN CATCH
[2018-10-08 19:02] LABS: BILIRUBIN URINE NEGATIVE (NEGATIVE); BLOOD URINE NEGATIVE (NEGATIVE); COLOR YELLOW; GLUCOSE URINE NEGATIVE (NEGATIVE); KETONE URINE NEGATIVE (NEGATIVE); LEUKOCYTES URINE NEGATIVE (NEGATIVE); NITRITE URINE NEGATIVE (NEGATIVE); PH URINE 6.5; PROTEIN URINE NEGATIVE (NEGATIVE); SP GRAVITY URINE 1.014; TURBIDITY URINE CLEAR (CLEAR); UROBILINOGEN URINE NORMAL (NORMAL)
[2018-10-08 19:04] LABS: UR EPITHELIAL CELLS <10 /HPF (<10); URINE BACTERIA NEGATIVE /HPF; URINE RBC <10 /HPF (<10); URINE WBC <10 /HPF (<10)
[2018-10-08] MEDS: TOPROL XL PO SCH (21:28)
[2018-10-08] MEDS: NEXIUM IV SCH (23:15)
--- NOTE | 2018-10-09 04:23 | GASTROENTEROLOGY CONSULTATION ---
DATE: 10/09/2018 REASON FOR CONSULTATION: Symptomatic anemia. HISTORY OF PRESENT ILLNESS: Ms. Madelin Martini is an 88-year-old woman with past medical history of hypertension, hyperlipidemia, chronic back pain, recurrent urinary tract infections, iron deficiency anemia, GERD, prior TIA, gout, legal blindness, who presented for rehab with a hemoglobin of 5.8. The patient reports nausea, dyspnea on exertion, and fatigue, constipation. No chest pain or abdominal pain, overt rectal bleeding or melena. She has never had an EGD or colonoscopy in the past. She is on aspirin and Mobic. The Mobic was recently started for her joint pain. Per ER notes, the patient apparently had a black tar stool in the ED when checked for Hemoccult. REVIEW OF SYSTEMS: As per HPI, otherwise 12 point review of systems negative. PAST MEDICAL HISTORY: As per HPI. Other issues include prior question TIA, anxiety, insomnia. PAST SURGICAL HISTORY: Hysterectomy, shoulder surgery, back surgery, left leg surgery with angus placement, cholecystectomy, hysterectomy, and appendectomy. HOME MEDICATIONS: Were reviewed in chart. ALLERGIES: Codeine. SOCIAL HISTORY: Former smoker, quit at the age of 52. No alcohol or drug use. FAMILY HISTORY: Notable for sister who passed with pancreatic cancer. No history of gastric or colon cancer. PHYSICAL EXAMINATION: Vital Signs: Temperature 98.7 degrees, heart rate of 92, respiratory rate 16, blood pressure 146/42, O2 saturation on 4 L on 1 L nasal cannula. General: The patient is awake, alert, no acute distress. HEENT: Sclerae anicteric. Moist mucous membranes. Extraocular motor intact. Neck: Supple. No JVD or lymphadenopathy. Cardiac: Regular rate and rhythm. No murmurs. Lungs: Clear to auscultation bilaterally. Abdomen: There is soft, nontender, nondistended. Normoactive bowel sounds. The patient has some mild 1+ lower extremity edema. Neuro: Cranial nerves II-XII grossly intact. The patient is moving all extremities symmetrically. LABS: White count of 6.4, hemoglobin 9.3 from 6.3 after 1 unit of packed red blood cells, MCV is 74.8, platelets of 294,000. INR of 1.6. CMP notable for creatinine 1.3, normal BUN of 21, ferritin of 34, iron of 13, albumin of 3.2, vitamin B12 was 211, folate of 10.3. UA negative. ASSESSMENT AND PLAN: Ms. Madelin Martini is an 88-year-old woman with past medical history of iron deficiency anemia, gastroesophageal reflux disease, chronic back pain on NSAIDs, hypertension on aspirin, who presents from rehab with acute on chronic anemia with iron deficiency. The patient, apparently, had a melenic stool noted by the ER physician. However, the patient has been unable to report a history of melenic stool or blood given her vision loss. We will plan for diagnostic EGD tomorrow. We will keep her n.p.o. after midnight. Trend hemoglobin and hematocrit, transfuse for hemoglobin between 7 and 8. She will need to be on iron replacement therapy. She has not had a colonoscopy in the past. We will discuss this possibility if upper endoscopy is negative for etiology of anemia. # TINY # GERD # HTN # Coagulopathy Thank you for this consult. We will follow with you. Please call with any questions or concerns. [facility]
[2018-10-09] MEDS: CARDIZEM PO SCH ×3 (04:45→21:02)
[2018-10-09 06:56] LABS: BASO# 0.05 X1000 (0.0-0.2); BASO% 0.6 % (0.0-0.8); EOS# 0.42 X1000 (0.0-0.7); EOS% 5.3 % (0.0-10.0); HEMATOCRIT 29.5 % (37.0-47.0); IMM GRAN# 0.06 X1000 (0.0-0.04); IMM GRAN% 0.8 % (0.0-0.5); LYMPH# 1.66 X1000 (1.2-3.4); LYMPH% 20.9 % (20.5-51.1); MCH 23.2 PG (27-31); MCHC 30.5 g/dL (33-37); MONO# 0.81 X1000 (0.11-0.59); MONO% 10.2 % (1.7-9.3); MPV 11.7 FL (7.4-10.4); NEUT# 4.95 X1000 (1.4-6.5); NEUT% 62.2 % (42.2-75.2); PLT 317 X1000 (130-400); RBC 3.88 XMIL (4.2-5.4); WBC 7.95 X1000 (4.8-10.8)
[2018-10-09 07:10] LABS: CALCIUM 9.7 mg/dL (8.8-10.2); CREATININE 0.9 mg/dL (0.5-0.9); POTASSIUM 4.2 mmol/L (3.5-5.1)
[2018-10-09] MEDS ORDERED: SODIUM CHLORIDE 0.9% 10 ML ONE ×2 (07:36→16:18)
[2018-10-09] MEDS ORDERED: FERROUS SULFATE PO SCH (09:00)
[2018-10-09] MEDS ORDERED: XYLOCAINE-MPF 2% ONE (09:30)
[2018-10-09] MEDS ORDERED: DIPRIVAN 1% ONE (09:31)
--- NOTE | 2018-10-09 10:31 | ENDOSCOPY OPERATIVE NOTE ---
[facility] ENDOSCOPY OPERATIVE NOTE , PATIENT: Madelin Martini ADMISSION DATE: MR#: [id number] : 1930 EGD PROCEDURE REPORT PROCEDURE DATE: 10/09/2018 SURGEON: Wicho Street MD STATUS: inpatient PRESIDENT & FOUNDER: Marky Freed and Shamika Ross PREOPERATIVE DIAGNOSIS: The patient is a 88 yr old female here for an EGD due to iron deficiency ane julianne. PROCEDURE PERFORMED: EGD, diagnostic MEDICATIONS: Per Anesthesia TOPICAL ANESTHETIC: none CONSENT: The patient understands the risks and benefits of the procedure and understands that these r isks include, but are not limited to: sedation, allergic reaction, infection, perforation and/or bleeding. Alternative means of evaluation and treatment include, among others: physical exam, x-rays, and/or surgical intervention. The patient elects to proceed with this endoscopic procedure. HISORY AND PHYSICAL: 10/09/2018 function. Hand hygiene and appropriate measures for infection prevention was taken. After the risks, benefits and alternatives of the procedure were thoroughly explained, Informed consent was verified, confirmed and timeout was successfully executed by the treatment team. The patient was anesthetized with topical anesthesia and the [id number]-[id number] ([id number]) endoscope was introduced through the mouth and advanced to the second portion of the duoden um. Retroflexion was performed in the stomach and revealed no abnormalities. The gastroscope was then slowly withdraw n and removed. ESOPHAGUS: Z line was 44 cms. The mucosa of the esophagus appeared normal. STOMACH: Erosion vs small AVM noted in the gastric fundus; May need Cautery if continues to have Anem ia and is off antocoagulation for 2-3 days. Patient was on Eliquis until 10-08-18. Mild gastritis (inflammation) was found in the gastric antrum. DUODENUM: The duodenal mucosa showed no abnormalities in the duodenal bulb, 1st part duodenum, and 2n d part duodenum. SPECIMENS REMOVED: No ADVERSE EVENTS: There were no complications. POSTOPERATIVE DIAGNOSIS: 1. Z line was 44 cms 2. The mucosa of the esophagus appeared normal 3. Erosion vs small AVM noted in the gastric fundus; May need Cautery if continues to have Anemia an d is off antocoagulation for 2-3 days. Patient was on Eliquis until 10-08-18 4. Gastritis (inflammation) was found in the gastric antrum 5. The duodenal mucosa showed no abnormalities in the duodenal bulb, 1st part duodenum, and 2nd part duodenum RECOMMENDATIONS: 1. Start Proton pump inhibitor daily - 30 minutes before a meal 2. Avoid non-steroid anti-inflammatory drugs 3. Start Iron C BID and MVI Qd for 90 days. 4. May need colonoscopy as an outpatient if continues to be anemic REPEAT EXAM: Wicho Street MD eSigned: Wicho Street MD 10/09/2018 10:31 AM cc: PATIENT NAME: Madelin Martini MR#: [id number]
[2018-10-09] MEDS: CENTRUM SILVER PO SCH (12:29)
[2018-10-09] MEDS: MIRALAX PO SCH ×2 (12:41→21:02)
[2018-10-09] MEDS: TOPROL XL PO SCH ×2 (12:43→21:02)
[2018-10-09] MEDS: ZYLOPRIM PO SCH (12:43)
[2018-10-09] MEDS: LEXAPRO PO SCH (12:43)
[2018-10-09] MEDS: DITROPAN PO SCH (12:44)
[2018-10-09] MEDS: NEXIUM IV SCH ×2 (12:45→21:01)
[2018-10-09] MEDS: NS 1,000 ML IV SCH (14:31)
[2018-10-09] MEDS: DULCOLAX PR SCH (16:09)
--- NOTE | 2018-10-09 16:22 | PROGRESS NOTE ---
DATE: 10/09/2018 INTERVAL HISTORY: No acute events. She is feeling fine. Denies new complaints, except occasional chest pain, which is better than before. VITALS: Temperature 99.5 degrees, pulse 85, respiratory rate 20, blood pressure acceptable saturating 100% on 1 L nasal cannula. PHYSICAL EXAMINATION: General: Does not appear in any acute distress. HEENT: Oral cavity is moist. Lungs: Air entry bilaterally equal. No wheeze, rhonchi, or crackles. Cardiovascular: S1, S2 normal. No murmur, rub, or gallop. Abdomen: Soft, nontender. Extremities: She has bilateral lower extremity edema. Central Nervous System: She is alert. She is oriented to person and situation, mostly. She is charted to have formed hard brown bowel movement. DIAGNOSTIC STUDIES: EGD had detected an AV malformation or blood vessel which was not actively bleeding. I also talked with the patient's daughter on phone. Labs: Hemoglobin 9, platelet count of 317,000, normal WBC. Normal electrolytes. ASSESSMENT AND PLAN: 1. Acute likely upper gastrointestinal blood with acute blood loss anemia. She is status post esophagogastroduodenoscopy which detected lesion suspicious for erosion versus AV malformation. Considering she was on Eliquis, no intervention was done at that time. Continue Nexium IV every 12 hours. Her blood count nick appropriately after 2 units of blood transfusion. Gastroenterology on board and will plan repeat an upper endoscopy with or without colonoscopy in future. We will continue to hold her NSAID and Eliquis which could have contributed to this. 2. Paroxysmal atrial fibrillation. Continue home diltiazem and metoprolol. 3. Chronic kidney disease, stage 3, pulmonary hypertension, and diastolic grade 1 dysfunction contributing to her bilateral lower extremity edema. I will stop intravenous fluids, start her on p.o. Lasix. 4. Constipation. Continue MiraLAX and start patient on bisacodyl suppository. 5. Others: Continue allopurinol for gout prophylaxis, escitalopram for anxiety, iron carbonyl ascorbic acid and multivitamin for anemia, oxybutynin for bladder spasm. DISPOSITION: Plan of care discussed with the patient and her daughter on phone. All their questions have been answered. I am anticipating patient remains inside the hospital for 24 to 48 hours at least for monitoring of CBC. cc: MD CURTIS Ellison
[2018-10-09] MEDS: LASIX PO SCH (17:17)
[2018-10-09] MEDS: ICAR-C PO SCH (21:01)
[2018-10-10] MEDS: DULCOLAX PR SCH ×3 (05:49→22:00)
[2018-10-10] MEDS: NEXIUM IV SCH ×3 (06:08→21:59)
[2018-10-10] MEDS: CARDIZEM PO SCH ×3 (06:09→21:59)
[2018-10-10] MEDS: LASIX PO SCH ×2 (06:14→18:14)
[2018-10-10 07:00] LABS: BASO# 0.07 X1000 (0.0-0.2); BASO% 0.9 % (0.0-0.8); EOS% 5.3 % (0.0-10.0); HEMATOCRIT 33.1 % (37.0-47.0); HEMOGLOBIN 9.8 g/dL (12.0-16.0); IMM GRAN# 0.06 X1000 (0.0-0.04); IMM GRAN% 0.8 % (0.0-0.5); LYMPH# 1.68 X1000 (1.2-3.4); LYMPH% 22.4 % (20.5-51.1); MCH 23.1 PG (27-31); MCHC 29.6 g/dL (33-37); MCV 77.9 FL (81-99); MONO# 0.92 X1000 (0.11-0.59); MONO% 12.3 % (1.7-9.3); MPV 11.4 FL (7.4-10.4); NEUT# 4.38 X1000 (1.4-6.5); NEUT% 58.3 % (42.2-75.2); PLT 284 X1000 (130-400); RBC 4.25 XMIL (4.2-5.4); RDW 19.8 % (11.5-14.5); WBC 7.51 X1000 (4.8-10.8)
[2018-10-10 07:39] LABS: CALCIUM 10.1 mg/dL (8.8-10.2); CREATININE 0.9 mg/dL (0.5-0.9); POTASSIUM 4.2 mmol/L (3.5-5.1)
[2018-10-10] MEDS: DITROPAN PO SCH (09:35)
[2018-10-10] MEDS: LEXAPRO PO SCH (09:35)
[2018-10-10] MEDS: TOPROL XL PO SCH ×2 (09:35→22:00)
[2018-10-10] MEDS: CENTRUM SILVER PO SCH (09:35)
[2018-10-10] MEDS: ZYLOPRIM PO SCH (09:35)
[2018-10-10] MEDS: ICAR-C PO SCH ×2 (09:35→22:00)
[2018-10-10] MEDS: MIRALAX PO SCH ×2 (09:36→22:01)
[2018-10-10] MEDS ORDERED: LASIX IV ONE (15:28)
--- NOTE | 2018-10-10 19:20 | PROGRESS NOTE ---
DATE: 10/10/2018 INTERVAL HISTORY: No acute events overnight. Her hemoglobin has been stable. She has been eating okay. She denies new complaints. We discussed about continuing her on Lasix for her bilateral lower extremity edema, and we also discussed about fine balance between the Lasix and kidney function. The daughter at bedside concerned about her fluctuating mental status and I explained to her about that and she likely has cognitive impairment versus early dementia, but she would need outpatient followup for diagnosing it properly. Currently the patient denies chest pain or shortness of breath, nausea, vomiting, abdominal pain. She has had bowel movements. PHYSICAL EXAMINATION: Vital Signs: Temperature 97.7 degrees, pulse 63, respiratory rate 18, blood pressure 133/43. She is saturating 98% on 2 L nasal cannula. General: Morbidly obese, not in any acute distress, HEENT: Oral cavity is moist. Lungs: Air entry bilaterally equal. No wheeze, rhonchi. Mild crackles bilateral infrascapular region. Cardiovascular: S1, S2 normal. No murmur, rub, or gallop. Abdomen: Soft, nontender. Extremities: She has bilateral lower extremity edema. Neurologic: She is alert. She is oriented to place, person and to situation partially. However, she does have memory impairment and she introduces me to her son and her daughter to whom I have met previously in her presence. Input and Output: She is listed to have had 3 bowel movements yesterday night. LABS: Suggestive of hemoglobin of 9.8, platelets of 284,000. Normal electrolytes. Microbiology, no new data. ASSESSMENT AND PLAN: 1. Acute likely upper gastrointestinal bleeding with acute blood loss anemia, status post esophagogastroduodenoscopy which detected suspicious lesion of erosion versus arteriovenous malformation, status post 2 units of packed red blood cells. She was also on Eliquis for atrial fibrillation and was taking nonsteroidal anti-inflammatory drugs for her back pain. Continue intravenous Nexium every 12 hours, and I will transition her to oral tomorrow. If her blood count drops, then the plan is to repeat endoscopy or colonoscopy in the future. Her nonsteroidal anti-inflammatory drugs and Eliquis have been held. Family has been talked about risk of stroke with this, and they understood it. 2. Paroxysmal atrial fibrillation, currently well controlled on home diltiazem and metoprolol. I will not resume anticoagulation. 3. Chronic kidney disease stage 3, pulmonary hypertension, and diastolic grade 1 dysfunction contributing to her bilateral lower extremity edema. Continue oral Lasix and give additional intravenous Lasix today. 4. Constipation is resolved on MiraLAX and bisacodyl suppositories. 5. Intermittent confusion. This is likely in the setting of mild cognitive impairment. She may have a component of early dementia and/or associated hospital-acquired delirium. I discussed with the patient's daughter about the need for outpatient followup to make a formal diagnosis and discussion about need for cholinesterase inhibitor medications. I will continue her iron carbonyl ascorbic acid for anemia with multivitamin and oxybutynin for bladder spasm. 6. Disposition: I will monitor her inside the hospital with repeat hemoglobin. The plan is, based on her hemoglobin, I am anticipating discharge in next 48 to 72 hours. Plan of care discussed with the patient's daughter. Her questions have been answered. cc: Josh Johnson MD
--- NOTE | 2018-10-10 21:14 | PROVIDER PROGRESS NOTE ---
Progress Note S: No acute overnight events. Afebrile. No N/V. Tolerating PO. No CP/SOB/abdominal pain/rectal bleeding/melena. +BMs O: Last Vital Signs Temp 97.9 F 10/10/18 19:59 Pulse 78 10/10/18 19:59 Resp 19 10/10/18 19:59 BP 137/63 10/10/18 19:59 Pulse Ox 100 10/10/18 19:59 Height 5 ft 5 in Weight 180 lb 4 oz 2L NC GEN: awake, alert, NAD HEENT: anicteric, MMM NECK: supple, no JVD CV: RRR, no murmurs PULM: CTAB ABD: soft, NT/ND, NABS EXT: no cce NEURO: nonfocal 10/08/18 10/08/18 10/08/18 09:04 09:04 09:04 WBC Hgb MCV Plt Count Iron 13 L TIBC 330 Ferritin 34 Vitamin B12 211 L Folate 10.3 10/10/18 06:40 WBC 7.51 Hgb 9.8 L MCV 77.9 L Plt Count 284 Iron TIBC Ferritin Vitamin B12 Folate EGD 10/09 STOMACH: Erosion vs small AVM noted in the gastric fundus; May need Cautery if continues to have Anemia and is off antocoagulation for 2-3 days. Patient was on Eliquis until 10-08-18. Mild gastritis (inflammation) was found in the gastric antrum. DUODENUM: The duodenal mucosa showed no abnormalities in the duodenal bulb, 1st part duodenum, and 2nd part duodenum. ASSESSMENT AND PLAN: Ms. Madelin Martini is an 88-year-old woman with past medical history of iron deficiency anemia, gastroesophageal reflux disease, chronic back pain on NSAIDs, hypertension on aspirin, who presented from rehab with acute on chronic anemia with iron deficiency and anemia. 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 Not treated given recent Eliquis aspirin use. She is not actively bleeding and hgb stable. Her bleeding is likely triggered by reinitiation of Mobic. # GI bleed: may be secondary to AVM; however, there was no stigmata of recent bleeding on EGD; other etiologies include SB or colonic; transition to oral PPI once daily # Anemia: B12 and iron deficient: continue iron; recommend B12 replacement; avoid NSAIDs; recommend conservative tx in setting of advanced age and risk of anesthesia # Afib: rate controlled; off Eliquis # Constipation: improved with bowel regimen Call with questions
[2018-10-11] MEDS: CARDIZEM PO SCH ×3 (04:24→18:36)
[2018-10-11] MEDS: LASIX PO SCH ×2 (05:41→18:36)
[2018-10-11 08:01] LABS: BASO# 0.09 X1000 (0.0-0.2); EOS# 0.39 X1000 (0.0-0.7); EOS% 4.2 % (0.0-10.0); HEMATOCRIT 32.4 % (37.0-47.0); HEMOGLOBIN 9.6 g/dL (12.0-16.0); IMM GRAN# 0.05 X1000 (0.0-0.04); IMM GRAN% 0.5 % (0.0-0.5); LYMPH# 2.05 X1000 (1.2-3.4); LYMPH% 22.3 % (20.5-51.1); MCH 23.1 PG (27-31); MCHC 29.6 g/dL (33-37); MCV 77.9 FL (81-99); MONO# 0.98 X1000 (0.11-0.59); MONO% 10.7 % (1.7-9.3); MPV 11.7 FL (7.4-10.4); NEUT# 5.63 X1000 (1.4-6.5); NEUT% 61.3 % (42.2-75.2); PLT 288 X1000 (130-400); RBC 4.16 XMIL (4.2-5.4); RDW 20.2 % (11.5-14.5); WBC 9.19 X1000 (4.8-10.8)
[2018-10-11 08:18] LABS: CALCIUM 9.6 mg/dL (8.8-10.2); CREATININE 1.1 mg/dL (0.5-0.9); POTASSIUM 3.6 mmol/L (3.5-5.1)
[2018-10-11] MEDS: TOPROL XL PO SCH ×2 (09:30→20:51)
[2018-10-11] MEDS: DITROPAN PO SCH (09:31)
[2018-10-11] MEDS: LEXAPRO PO SCH (09:31)
[2018-10-11] MEDS: ICAR-C PO SCH ×2 (09:31→20:51)
[2018-10-11] MEDS: CENTRUM SILVER PO SCH (09:31)
[2018-10-11] MEDS: ZYLOPRIM PO SCH (09:31)
[2018-10-11] MEDS: DULCOLAX PR SCH ×2 (09:32→20:50)
[2018-10-11] MEDS: NEXIUM IV SCH (09:32)
[2018-10-11] MEDS: MIRALAX PO SCH ×2 (09:32→20:50)
--- NOTE | 2018-10-11 15:07 | PROGRESS NOTE ---
DATE: 10/11/2018 INTERVAL HISTORY: No acute events overnight. Ms. Martini could not sleep tonight. However, in the morning time when physical therapy came by, she was able to walk in the hallway on study, walk up to the end of the room using a walker, but she needed a lot of help. The patient's family is at bedside. I discussed with them about the need for retirement facility for long-term and they agreed. I have notified in computer the manager social work team to see if they could find a [facility] facility for her for in the future. She has had bowel movement which did not look bloody. Her vitals were unremarkable. Her serum creatinine is slightly increasing. Currently, temperature 98 degrees, pulse of 80, respiratory rate 19, blood pressure 120/60, saturating 97% on 2 L nasal cannula. PHYSICAL EXAMINATION: Obese, not in any acute distress. Oral cavity is moist.Lungs: Air entry decreased with inspiratory crackles, bilateral infrascapular region. Otherwise, adequate bronchovesicular breath sounds bilaterally. S1, S2 normal. No murmur, rub, or gallop. Abdomen: Obese, soft, nontender. Bilateral lower extremity edema, which appears to have improved from yesterday. She is alert. She is oriented to place and person and partially with the situation. She is -900 mL yesterday. Microbiology, no new data. ASSESSMENT AND PLAN: 1. Acute likely upper gastrointestinal intestinal bleeding with acute blood loss anemia status post esophagogastroduodenoscopy which detected suspicious lesion of erosion versus AV malformation in gastric fundus, status post 2 units of packed red blood cells. Her Eliquis for atrial fibrillation and NSAID for back pain have been held. Change intravenous to oral proton pump inhibitors twice daily at least for 3 months. She would need a repeat endoscopy or colonoscopy in future based on her course. 2. Paroxysmal atrial fibrillation, currently well controlled on home metoprolol and diltiazem. Continue to not give anticoagulation. 3. Chronic kidney disease stage 3, pulmonary hypertension, diastolic grade 1 congestive heart failure contributing to bilateral lower extremity edema. Continue oral Lasix and keep a close eye over her kidney function. 4. Intermittent confusion, likely mild cognitive impairment versus early dementia, currently stable. 5. Continue iron carbonyl ascorbic acid and multivitamin for anemia, oxybutynin for bladder spasm, escitalopram for her anxiety and depression, bisacodyl and MiraLAX to avoid constipation. 6. Disposition: I am awaiting further Station Detective recommendation about placement. Plan of care discussed with the patient, her daughter and son at bedside. Their questions have been satisfactorily answered. cc: Josh Johnson MD
[2018-10-11] MEDS: PRILOSEC PO SCH (20:51)
[2018-10-12] MEDS: CARDIZEM PO SCH ×3 (04:28→21:35)
[2018-10-12] MEDS: PRILOSEC PO SCH ×2 (06:05→21:36)
[2018-10-12] MEDS: LASIX PO SCH ×3 (06:06→19:36)
[2018-10-12 06:59] LABS: BASO# 0.06 X1000 (0.0-0.2); BASO% 0.7 % (0.0-0.8); EOS# 0.39 X1000 (0.0-0.7); EOS% 4.6 % (0.0-10.0); HEMATOCRIT 32.3 % (37.0-47.0); HEMOGLOBIN 9.6 g/dL (12.0-16.0); IMM GRAN# 0.05 X1000 (0.0-0.04); IMM GRAN% 0.6 % (0.0-0.5); LYMPH# 2.09 X1000 (1.2-3.4); LYMPH% 24.9 % (20.5-51.1); MCH 23.2 PG (27-31); MCHC 29.7 g/dL (33-37); MCV 78.2 FL (81-99); MONO# 0.91 X1000 (0.11-0.59); MONO% 10.8 % (1.7-9.3); MPV 11.4 FL (7.4-10.4); NEUT# 4.89 X1000 (1.4-6.5); NEUT% 58.4 % (42.2-75.2); PLT 278 X1000 (130-400); RBC 4.13 XMIL (4.2-5.4); RDW 20.3 % (11.5-14.5); WBC 8.39 X1000 (4.8-10.8)
[2018-10-12 07:09] LABS: CALCIUM 9.4 mg/dL (8.8-10.2); CREATININE 0.9 mg/dL (0.5-0.9); POTASSIUM 3.3 mmol/L (3.5-5.1)
[2018-10-12] MEDS: CENTRUM SILVER PO SCH (10:02)
[2018-10-12] MEDS: DITROPAN PO SCH (10:02)
[2018-10-12] MEDS: TOPROL XL PO SCH ×2 (10:02→21:35)
[2018-10-12] MEDS: ZYLOPRIM PO SCH (10:02)
[2018-10-12] MEDS: ICAR-C PO SCH ×2 (10:02→21:35)
[2018-10-12] MEDS: MIRALAX PO SCH ×2 (10:03→21:35)
[2018-10-12] MEDS: LEXAPRO PO SCH (10:03)
[2018-10-12] MEDS: DULCOLAX PR SCH ×2 (10:03→21:37)
--- NOTE | 2018-10-12 15:01 | PROGRESS NOTE ---
DATE: 10/12/2018 INTERVAL HISTORY: No acute events overnight. SUBJECTIVE: Patient is sleeping in the bed alert, not in distress. She states she is making good amount of urine. We discussed about stable blood count. Answered all of her questions. VITALS: Temperature 99.1 degrees, pulse 73, respiratory rate 18, blood pressure 129/45, saturating 98% 2 L nasal cannula. PHYSICAL EXAMINATION: Overweight, not in any acute distress. Oral cavity is moist. Air entry bilaterally equal. No wheeze or rhonchi. Mild inspiratory crackles bilateral infrascapular region. S1, S2 normal. No murmur, rub, or gallop.Abdomen: Soft, nontender. Bilateral lower extremity edema which is improving on a daily basis. She is alert, oriented x3. LABS: Suggestive of microcytic anemia, normal platelet count, hypokalemia which is being repleted and chronic kidney dysfunction. ASSESSMENT AND PLAN: 1. Acute likely upper gastrointestinal bleed with acute blood loss anemia status post EGD which detected suspicious lesion of erosion vs arterial venous malformation gastric fundus status 2 units of packed red blood cell. Her Eliquis for atrial fibrillation and nonsteroidal anti- inflammatory drugs for back pain have been held. Continue proton pump inhibitors b.i.d. for 3 months . 2. Paroxysmal atrial fibrillation, continue home metoprolol, diltiazem and after discussion with Gastroenterology I would start her on aspirin. 3. Bilateral lower extremity edema likely because of chronic kidney disease stage 3, pulmonary hypertension and diastolic congestive heart failure. Continue current dose of Lasix. Her chronic kidney disease stage 3, are currently stable . 4. Others, her intermittent confusion due to mild cognitive impairment is stable. Continue iron carbonic acid with multivitamin for anemia, oxybutynin for bladder spasm, citalopram for anxiety, depression, bisacodyl with MiraLAX to avoid constipation. DISPOSITION: Am awaiting Exec. Creative Director recommendation about finding a rehab or skilled nursing placement for her. Plan of care discussed with her, her questions have been answered. cc: Josh Johnson MD [facility]
[2018-10-12] MEDS: KLOR-CON PO SCH ×2 (16:34→18:39)
[2018-10-13] MEDS: CARDIZEM PO SCH ×2 (03:00→12:07)
[2018-10-13] MEDS: LASIX PO SCH ×2 (05:45→17:30)
[2018-10-13] MEDS: PRILOSEC PO SCH (06:01)
[2018-10-13] MEDS: DULCOLAX PR SCH (08:37)
[2018-10-13] MEDS: DITROPAN PO SCH (08:38)
[2018-10-13] MEDS: MIRALAX PO SCH (08:38)
[2018-10-13] MEDS: LEXAPRO PO SCH (08:38)
[2018-10-13] MEDS: CENTRUM SILVER PO SCH (08:38)
[2018-10-13] MEDS: ZYLOPRIM PO SCH (08:38)
[2018-10-13] MEDS: TOPROL XL PO SCH (08:38)
[2018-10-13] MEDS: ICAR-C PO SCH (08:38)
[2018-10-13 16:10] VITALS: BP 141/51
--- NOTE | 2018-10-13 18:33 | GASTROENTEROLOGY PROGRESS NOTE ---
DATE: 10/13/2018 ATTENDING PHYSICIAN: Dr. Johnson. PRIMARY CARE PHYSICIAN: Dr. Lincoln [place]. SUBJECTIVE: Patient is resting. The patient is currently using the bedside commode. She denies any nausea, vomiting, vomiting blood. She denies any blood in the stools. She is eating better. She denies any fevers, rigors, chills. She wants to go home. OBJECTIVE: Vital signs: Temperature 98.3, pulse of 71, respiratory rate 20, pressure 147/49, saturating 90% on 2 L cannula. Body weight of 180 pounds 4 ounces. BMI of 30.0 kg. General: Moderately built, moderately nourished in no acute distress. HEENT: Pale. No icterus. Neck: Supple. Abdomen: Soft, nondistended. No guarding or rebound. Extremities: No cyanosis or clubbing. Neurologic: Alert, awake, oriented. LABORATORY DATA: Hemoglobin and hematocrit is 9.7 and 32.3. White count of 8.39. Platelet count of 278,000. Sodium 139, potassium 3.3, chloride 97, bicarbonate 32, anion gap 10, BUN of 14, creatinine 0.9, glucose of 135, calcium 9.4. AST 12, ALT 6, alkaline phosphatase 101, total protein 5.9, albumin 3.2. Folate of 10.3. Stool for occult blood was positive. IMPRESSION AND PLAN: 1. Gastrointestinal bleed. Likely secondary to gastritis versus arteriovenous malformation. Hematocrit stabilized for now. We could not cauterize the stomach area as patient had Eliquis the day before. If hematocrit drops or she continues to be anemic then we may have to do a repeat EGD with cautery of possible arteriovenous malformation in the stomach body. 2. Anemia. She will continue Iron C b.i.d. for 3 months. Multivitamin once daily for 3 months. 3. Atrial fibrillation rate controlled. Her Eliquis is on hold. Constipation improved with the bowel regimen. She is having soft brown stools. 4. Reflux disease. Patient to continue to follow gastroesophageal reflux disease lifestyle changes. 5. Chronic back pain. Aware. She is to avoid NSAIDs. 6. Hypertension being managed by the primary team. The above plan was discussed with the patient and all questions answered. Patient will follow up in the clinic in 3 months from discharge. We may plan to do a repeat EGD with possible cautery of the gastric AVM if she is still anemic. cc: MD Dr. Alex Peralta MD [facility]ITALJon
--- NOTE | 2018-10-14 10:07 | DISCHARGE SUMMARY ---
ADMISSION DATE: 10/08/2018 DISCHARGE DATE: 10/13/2018 DISCHARGE DISPOSITION: Home with Home [facility] and home physical therapy. [facility] could not accept the patient, and patient did not have any more rehab days left. She is to work with her outpatient provider as well to find residential facility from home. She lives with her son. DISCHARGE CONDITION: Hemodynamically stable. Alert and oriented x3. She has not had any bloody bowel movements. Her hemoglobin is stable. DISCHARGE DIAGNOSES: 1. Acute gastrointestinal bleed likely upper. 2. Acute blood loss anemia requiring 2 units of blood transfusion. 3. NSAID use for back pain and Eliquis for atrial fibrillation, which could have possibly contributed to gastric erosion. 4. Chronic kidney disease stage 3. 5. Bilateral lower extremity edema due to diastolic congestive heart failure without acute exacerbation and chronic kidney disease stage 3. 6. Chronic constipation. OTHER DIAGNOSES: 1. Paroxysmal atrial fibrillation. 2. Mild cognitive impairment. 3. Anemia of blood loss. 4. Bladder spasm. 5. Anxiety and depression. 6. Constipation. 7. History of chronic gastroesophageal reflux disease. 8. 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 DISCHARGE MEDICATIONS: 1. She is provided CBC and BMP slips to get hemoglobin and kidney function done within 5 days. 2. Allopurinol 100 mg daily. 3. Aspirin 81 mg daily. 4. Oxybutynin 10 mg daily. 5. Amitriptyline 25 mg daily. 6. Milk of magnesia 30 mL as needed for constipation. 7. Metoprolol succinate extended release 50 mg b.i.d. 8. Diltiazem 30 mg every 8 hours. 9. Multivitamin with minerals 1 tablet daily. 10. Ferrous sulfate 325 mg daily. 11. Furosemide 40 mg daily, 30 tablets have been prescribed to get repeat kidney function done in 5 days. According to edema in lower extremities and kidney function, discuss with the regular doctor about adjusting dose. 12. Citalopram 10 mg daily. 13. Pantoprazole 40 mg b.i.d. 120 packet has been prescribed, take 40 mg b.i.d. until 11/08, and then discuss with a stomach doctor about further dosing. 14. Acetaminophen 650 mg every 4 hours as needed for pain. CONSULTATIONS AND PROCEDURES DURING HOSPITAL ADMISSION: Gastroenterology, Dr. Street. 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 However, no cauterization was performed as it was not actively bleeding, and patient was on Eliquis about 24 hours prior to the procedure. VITALS: At the time of discharge, temperature 97.5 degrees, pulse 73, respiratory rate 18, blood pressure 140/50 and saturating 100% on room air. PHYSICAL EXAMINATION: General: She does not appear in any acute distress. HEENT: Oral cavity is moist. Lungs: Air entry bilaterally equal. No wheeze or rhonchi. Mild crackles bilateral infrascapular region. Heart: S1, S2 normal. Mild systolic murmur heard best at 2nd intercostal space without any rub or gallop. Abdomen: Soft and nontender. Extremities: Mild bilateral lower extremity edema, which has significantly improved since presentation. Neurologic: She was alert and oriented x3. SIGNIFICANT LABS DURING HOSPITAL ADMISSION AND DISCHARGE: On admission, her hemoglobin was 6.3. After 2 units of transfusion, it remained stable at 9.6 at discharge. Her platelet was 278,000. Her potassium was 3.3 which was being repleted. BUN of 14, creatinine of 0.9. SIGNIFICANT MICROBIOLOGY DURING HOSPITAL ADMISSION: Stool occult blood test on admission was positive. SIGNIFICANT IMAGING DURING HOSPITAL ADMISSION: None except endoscopy. ASSESSMENT AND PLAN: Ms. Martini is 88 year old lady with past medical history of paroxysmal atrial fibrillation with rapid ventricular rate on Eliquis, who was discharged to rehab just a few days ago following recent hospital admission, who came in with abnormal blood tests with hemoglobin outpatient as low as 5.8. In the emergency room, her hemoglobin was 6.1. Though she did not did notice any blood in the stool, fecal occult blood test was positive so the hospitalist team was consulted for further management. The patient was transfused 2 units of packed red blood cells and EGD performed by Gastroenterology had detected erosion versus AV malformation in the stomach, which was not actively bleeding. Considering she was just taken off Eliquis 24 hours prior to endoscopy, no cauterization was performed. The patient was taken off Eliquis. Her occasional use of NSAID for back pain was stopped following which for subsequent 3 to 4 days, the patient did not have any drop in her hemoglobin, so it was decided to discharge her on proton pump inhibitors b.i.d., and have outpatient Gastroenterology followup. The patient also complained of bilateral lower extremity edema for which she was started on Lasix following which her edema had resolved and Lasix dose was decreased. She was given outpatient BMP slip, and was advised to discuss with the regular doctor about changing the Lasix dose according to her response. Plans were made to transfer her to rehab considering her poor functional status, and from there transition to residential home facility. However, she had exhausted her rehab days, and [facility] would not accept her so it was decided to discharge her home with home health and have outpatient provider work on finding a residential facility. More than 30 minutes were spent in discharging this patient. All of her questions as well as her daughter's questions were satisfactorily answered. cc: Josh Johnson MD
== END 2018-10-13 18:16 | disposition home health service (06) | DRG 378 ==
LOC: SUPCPDRO → ED 08:27 → 3N 08:28
PROVIDERS: ATTEND Internal Medicine

== ENCOUNTER 2018-11-05 16:42 | Observation (INO) ==
--- NOTE | 2018-11-05 17:34 | PROVIDER DOCUMENTATION ---
HPI-General Adult - General Chief Complaint: Altered Mental Status Stated Complaint: Dementia Time Seen by Provider: 11/05/18 17:31 Source: family Allergies/Adverse Reactions: Patient Allergies Allergy/AdvReac Type Severity Reaction Status Date / Time codeine Allergy Unknown Verified 11/05/18 17:08 Home Medications: Home Medication List Medication Instructions Recorded Confirmed Last Taken Type Aspirin 81 mg PO DAILY 06/25/13 11/05/18 11/04/18 History Allopurinol 100 mg PO DAILY 09/24/17 11/05/18 11/04/18 History Oxybutynin [Ditropan] 10 mg PO DAILY 09/24/17 11/05/18 11/04/18 History Diltiazem [Cardizem] 30 mg PO Q8H #180 tab 09/15/18 11/05/18 11/04/18 Rx Ferrous Sulfate 325 mg PO DAILY tab 09/15/18 11/05/18 Unknown Rx Amitriptyline [Elavil] 25 mg PO DAILY 10/08/18 11/05/18 11/04/18 History Escitalopram [Lexapro] 10 mg PO DAILY tab 10/13/18 11/05/18 11/04/18 Rx Furosemide [Lasix] 40 mg PO DAILY #30 tab 10/13/18 11/05/18 11/04/18 Rx Multivitamins/Minerals [Centrum 1 ea PO DAILY #30 tab 10/13/18 11/05/18 11/04/18 Rx Silver] Pantoprazole Sodium [Protonix] 40 mg PO BID #120 suspdr.pkt 10/13/18 11/05/18 11/04/18 Rx Metoprolol Succinate E.r. [Toprol 50 mg PO BID 11/04/18 11/05/18 11/04/18 History Xl] - History of Present Illness -Gen Adult Nature of Presenting Problems: [id number] presents to the ER for the second day. The family states that her AMS is worse than yesterday. They state that last night the patient became extremely paranoid. She refused her medication, she refused to eat. She paced the house all night. Today, she continues to have problems with her state of mind. She is confused, anxious, and uncooperative at times. She is oriented to person only to day. Location of Pain/Injury: reports: none Timing: reports: getting worse Associated Symptoms: reports: denies symptoms Similar Symptoms Previously?: Yes Recently seen or treated by another doctor?: Yes Review of Systems - Adult - REVIEW OF SYSTEMS - ADULT Constitutional: reports: see HPI. denies: chills, fever Eyes: reports: no symptoms reported Ears, Nose, Mouth & Throat: reports: no symptoms reported Cardiovascular: reports: no symptoms reported Respiratory: reports: no symptoms reported. denies: chronic cough, dyspnea on exertion, wheezing Gastrointestinal: reports: no symptoms reported. denies: abdominal pain, nausea, vomiting Genitourinary: reports: no symptoms reported. denies: dysuria, hematuria Musculoskeletal: reports: no symptoms reported Integumentary: reports: no symptoms reported Neurological: reports: no symptoms reported Psychiatric: reports: see HPI, anxiety, other (AMS/ dementia) Endocrine: reports: no symptoms reported Hematologic/Lymphatic: reports: no symptoms reported Allergic/Immunologic: reports: no symptoms reported All Other Systems: Reviewed and Negative Past History - Adult - PAST MEDICAL HISTORY-ADULT Review of Records: reports: Old Records Reviewed, Nursing Assessment Review, Medications Reviewed, Social history reviewed & non-contributory. Major Childhood Illnesses: reports: denies history Cardiovascular: reports: HTN, hyperlipidemia, murmur Respiratory: reports: asthma Gastrointestinal: reports: GERD Obstetrical/Gynecological: reports: denies history Genitourinary: reports: kidney disease Musculoskeletal: reports: denies history Neurological: reports: dementia Endocrine/Immune: reports: denies history Other Conditions: reports: denies history - PRIOR SURGERIES/PROCEDURES Surgical/Procedure History: reports: hysterectomy, orthopedic (extremity) (shoulder, leg), back/neck - PRIOR HOSPITALIZATIONS Prior Hospitalizations: reports: none - IMMUNIZATION STATUS Childhood Immunizations: See Nurse Assessment Flu Vaccine: See Nurse Assessment - FAMILY HISTORY Family History: reviewed, not pertinent - SOCIAL HISTORY Smoking: denies Substance Use: denies Living Situation: family Physical Exam-General - PHYSICAL EXAM-ADULT Initial Vital Signs Reviewed: Yes - CONSTITUTIONAL General Appearance: mild distress - EYES Eyes: PERRL/EOMI - HEAD, EARS, NOSE, MOUTH & THROAT HENMT: normocephalic/atraumatic - NECK Neck: non-tender, full range of motion, supple - RESPIRATORY Respiratory: chest non-tender, lungs clear, normal breath sounds - CARDIOVASCULAR Cardiovascular: normal peripheral pulses, regular rate, rhythm - GASTROINTESTINAL (ABDOMEN) Abdominal Exam: normal bowel sounds, non tender, soft - MUSCULOSKELETAL Back Exam: normal inspection Extremity: normal range of motion, non-tender, normal gait Peripheral Pulses: radial (R): 2+, radial (L): 2+ - SKIN Integumentary: normal color, normal turgor - NEUROLOGIC Neurologic: no motor/sensory deficits - PSYCHIATRIC Psych/Mental Status: disoriented x 3, anxious, disheveled, paranoid Progress - PLAN OF CARE/RESULTS Progress/Plan/Lab Results: Vital Signs - 8 hr 11/05/18 16:52 Temperature 98.3 F Pulse Rate 100 H Respiratory Rate 18 Blood Pressure 193/115 O2 Sat by Pulse Oximetry 95 Orders Category Date Time Status CHEST-1 VIEW [RAD] Stat Exams 11/05/18 17:32 Ordered CBC WITH ELECTRONIC DIFF [HEME] Stat Lab 11/05/18 17:31 Uncollected COMPREHENSIVE METABOLIC PANEL [CHEM] Stat Lab 11/05/18 17:31 Uncollected FREE T4 Stat Lab 11/05/18 17:31 Uncollected TSH Stat Lab 11/05/18 17:31 Uncollected UA NIMS W/REFLEX CULT [URINALYSIS] Stat Lab 11/05/18 17:32 Uncollected VITAMIN B12 Stat Lab 11/05/18 17:31 Uncollected family verbalizes an understanding of POC and agrees with treatment rendered here today. Result Diagrams: 11/05/18 19:15 11/05/18 18:06 - CONSULTS/PCP/HOSPITALIST Notification #1 *Consult/PCP/Hospitalist*: Dr Nguyễn Time Discussed: 20:03 Consult Disposition: Admit Departure - Departure Date of Disposition Decision: 11/05/18 Time of Disposition Decision: 19:28 DIAGNOSIS: Muscle weakness (generalized) Altered mental status Qualifiers: Altered mental status type: delirium Qualified Code(s): R41.0 - Disorientation, unspecified Disposition: ADMITTED INPATIENT 09 Certified Medical Emergency: Emergent Condition: Stable Additional Freetext Instructions: ED Follow Up Instructions: You have been treated by a care provider in the Emergency Department. These instructions are being provided to you so you can have an understanding of how to care for yourself upon discharge. Upon discharge from the Emergency Department, you are responsible for making arrangements for follow-up care by a physician of your choice. Take all prescribed medications as directed. Return to the Emergency Department immediately for any new or worsening symptoms. You may call the Physician Referral phone number at [phone] to obtain a list of Physicians who are taking new patients. Referrals and Follow-Ups: Lincoln Colorado MD [Primary Care Provider] - - Critical Care Note This patient required my direct & personal management of CC.: No Attestation - Physician/ ANDREA Attestation Patient care was provided by Advanced Practice Provider:: Yes Advanced Practice Provider:: Murray Denny Advanced Practice Provider documentation review:: The Mid-level provider documentation, treatment plan and medical decision making was reviewed by the physician who agrees with all treatment and medical decision making by the P. The physician spent face to face time with patient:: No Advanced Practice Provider documentation review:: Supervising physician onsite and consulted in the evaluation and care of this patient. The physician did not have a face to face encounter with the patient.
--- NOTE | 2018-11-05 18:06 | Diag Imaging Result Doc PS360 ---
EXAM: CHEST-1 VIEW HISTORY: FTT TECHNIQUE: Chest single view COMPARISON: 11/04/2018 FINDINGS: The lungs are well expanded. The heart is mildly prominent. The vessels are not distended. There are no infiltrates. No effusion identified. IMPRESSION: Mildly prominent heart Electronically signed by Chinmay Tate 11/05/2018 6:03 PM
[2018-11-05 18:47] LABS: ALB/GLOB RATIO 1.1; ALBUMIN 3.6 g/dL (3.5-5.0); CALCIUM 10.8 mg/dL (8.8-10.2); CREATININE 1.1 mg/dL (0.5-0.9); POTASSIUM 3.6 mmol/L (3.5-5.1); TOTAL BILIRUBIN 0.32 mg/dL (0.20-1.00)
--- NOTE | 2018-11-05 18:48 | ED EKG INTERP ---
This chart was entered by Gini Dukes Scribe, acting as scribe for Marquez Polo MD. EKG Interpretation - EKG Time of EKG reading by physician:: 18:32 EKG Read and Signed by:: Marquez Polo EKG Interpretation (*Must complete 3 of following elements*): Abnormal Rate: 109 Rhythm: sinus tachycardia [place]: left QRS: LVH (with reloarization abnormality) ND Interval: normal ST Wave: non-specific ST changes Attestation - Physician/ ANDREA Attestation Patient care was provided by Advanced Practice Provider:: Yes Advanced Practice Provider documentation review:: The Mid-level provider documentation, treatment plan and medical decision making was reviewed by the physician who agrees with all treatment and medical decision making by the MLP. The physician spent face to face time with patient:: No Advanced Practice Provider documentation review:: Supervising physician onsite and consulted in the evaluation and care of this patient. The physician did not have a face to face encounter with the patient. This chart was documented by the indicated scribe, (Gini Dukes Scribe) and accurately reflects the services I performed and decisions made by Christ benavidez David E., MD, as attested by the provider's signature.
[2018-11-05 19:03] LABS: FREE T4 1.14 ng/dL (0.93-1.70)
[2018-11-05 19:17] LABS: TSH 5.64 uIUmL (0.27-4.20)
[2018-11-05 19:22] LABS: BASO# 0.09 X1000 (0.0-0.2); BASO% 0.8 % (0.0-0.8); EOS% 5.2 % (0.0-10.0); HEMATOCRIT 40.2 % (37.0-47.0); HEMOGLOBIN 11.8 g/dL (12.0-16.0); IMM GRAN% 0.3 % (0.0-0.5); LYMPH# 3.09 X1000 (1.2-3.4); LYMPH% 26.6 % (20.5-51.1); MCH 22.1 PG (27-31); MCHC 29.4 g/dL (33-37); MCV 75.3 FL (81-99); MONO# 0.83 X1000 (0.11-0.59); MONO% 7.2 % (1.7-9.3); MPV 11.9 FL (7.4-10.4); NEUT# 6.95 X1000 (1.4-6.5); NEUT% 59.9 % (42.2-75.2); PLT 331 X1000 (130-400); RBC 5.34 XMIL (4.2-5.4); RDW 19.2 % (11.5-14.5)
[2018-11-05 19:23] LABS: IMM GRAN# 0.04 X1000 (0.0-0.04)
[2018-11-06 01:05] LABS: URINE SOURCE CATH
[2018-11-06 01:12] LABS: BILIRUBIN URINE NEGATIVE (NEGATIVE); BLOOD URINE NEGATIVE (NEGATIVE); COLOR YELLOW; GLUCOSE URINE NEGATIVE (NEGATIVE); KETONE URINE NEGATIVE (NEGATIVE); LEUKOCYTES URINE NEGATIVE (NEGATIVE); NITRITE URINE NEGATIVE (NEGATIVE); PH URINE 5.5; PROTEIN URINE TRACE mg/dL (NEGATIVE); TURBIDITY URINE CLEAR (CLEAR); UROBILINOGEN URINE NORMAL (NORMAL)
[2018-11-06 01:13] LABS: UR EPITHELIAL CELLS <10 /HPF (<10); URINE BACTERIA NEGATIVE /HPF; URINE RBC <10 /HPF (<10); URINE WBC <10 /HPF (<10)
[2018-11-06] MEDS ORDERED: ZOFRAN ODT PO PRN (02:19)
[2018-11-06] MEDS ORDERED: TYLENOL PO PRN (02:21)
[2018-11-06] MEDS: CARDIZEM PO SCH ×3 (04:50→21:19)
--- NOTE | 2018-11-06 05:23 | HISTORY AND PHYSICAL ---
PRIMARY CARE PROVIDER: Lincoln Colorado MD. DATE AND TIME: 11/05/2018 at 2045. CHIEF COMPLAINT: Altered mental status. HISTORY OF PRESENT ILLNESS: Ms Martini is an 88-year-old female who presented to the ER today for the 2nd day in a row. The family states that at home she has been having worsening confusion. They state that today it was worse than yesterday. They state that last night she became very paranoid. She has been refusing her medications, she has been refusing to eat. They said that she was up pacing the house all night. She was noted in the ER to be confused, anxious, and uncooperative at times. She was noted to be alert, oriented to person only today. She was recently admitted to the hospital in the end of September and was discharged on 10/13/2018. She was treated for an upper GI bleed. She was previously on Eliquis due to some paroxysmal atrial fibrillation, though this has since been discontinued. The patient has recently been treated for urinary tract infection that was reportedly diagnosed in 10/28/2018. She did take a medication of Cipro, has since completed this as well. Though today in the ER, she has some slight leukocytosis with a white blood cell count of 11,600. She has been afebrile. Urinalysis did not show any signs of infection. The patient's family, which included her daughter and son, state that due to her confusion and agitation, they are unable to control her at home. At this time, we will admit her for further treatment and evaluation of her worsening confusion. REVIEW OF SYSTEMS: The patient, at this time, denies any headache, dizziness, chest pain, shortness of breath, abdominal pain, nausea, vomiting, or diarrhea. She reports that her last bowel movement was yesterday. She denies any dysuria. She denies any pain, numbness, tingling, or swelling in extremities. She is alert and oriented to person only at this time. PAST MEDICAL HISTORY: 1. Iron-deficiency anemia. 2. Hypertension. 3. Gastroesophageal reflux disease. 4. Hyperlipidemia. 5. Anxiety. 6. Insomnia. 7. Questionable history of TIA in the past. 8. Gout. 9. 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 10. History of paroxysmal atrial fibrillation. 11. Diastolic congestive heart failure. 12. History of chronic hypoxic respiratory failure for which she was previously on home oxygen. Though, I am unsure if the patient is wearing her oxygen at home at this time. 13. Recent gastrointestinal bleed, for which the patient has been taken off her Eliquis secondary to this. 14. Chronic kidney disease. 15. Constipation. PAST SURGICAL HISTORY: 1. Hysterectomy. 2. Shoulder surgery. 3. Back surgery. 4. Left leg surgery with angus placement. SOCIAL HISTORY: The patient is currently living at home. Her son does live with her. She did recently undergo rehab at [facility] in [place]. There is no known history of tobacco, alcohol, or illicit drug use. FAMILY HISTORY: Her Father from myocardial infarction. Mother from a CVA. Sister from pancreatic cancer. Her brother of pneumonia, end-stage renal disease. ALLERGIES: Patient has allergies to codeine. HOME MEDICATIONS: 1. Allopurinol 100 mg p.o. daily. 2. Elavil 25 mg p.o. daily. 3. Aspirin 81 mg p.o. daily. 4. Cardizem 30 mg p.o. at bedtime. 5. Lexapro 10 mg p.o. daily. 6. Ferrous sulfate 325 mg p.o. daily. 7. Lasix 40 mg p.o. daily. 8. Toprol-XL 50 mg p.o. b.i.d. 9. Centrum Silver multivitamin 1 p.o. daily. 10. Ditropan 10 mg p.o. daily. 11. Protonix 40 mg p.o. b.i.d. DIAGNOSTIC DATA/LABORATORY RESULTS: 1. White blood cell count is 11,600, hemoglobin 11.8, hematocrit 40.2, platelet count is 331,000. Sodium 139, potassium 3.6, chloride 103, serum bicarbonate is 24, BUN 16, creatinine 1.1 with a GFR of 47. Glucose 131, calcium 10.8. Liver function tests within normal limits. Alkaline phosphatase is slightly elevated at 119. Urinalysis was obtained via catheter, was positive for trace protein, though was negative for glucose, ketones, blood, nitrites, leukocytes, white blood cells, or bacteria. 2. Chest x-ray showed the lungs were well expanded. The heart is mildly prominent. The vessels are not distended. There were no infiltrates or effusions identified, this is per Radiology. 3. EKG showed sinus tachycardia with a left access deviation at a rate of 109 with a QTc of 439 msec. PHYSICAL EXAMINATION: VITAL SIGNS: Temperature 98.5 degrees, heart rate 96, respirations 20, blood pressure is 175/82, oxygen saturation is 92% on room air. GENERAL: Ms. Martini is an 88-year-old female, she was resting in the ER stretcher, she was in no acute distress. She was awake and alert, though is only oriented to person, though she is able to follow commands. She is being cooperative at this time. HEENT: Head is atraumatic, normocephalic. Pupils are 3 mm bilaterally, are equal and round. Oral mucosa is moist. NECK: Supple. Trachea midline. CARDIOVASCULAR: Patient has S1, S2 present. No murmurs, gallops, rubs appreciated with a regular rate and rhythm. PULMONARY: Patient has symmetrical chest expansion bilaterally. Lung sounds are clear to auscultation in bilateral full mccrary. ABDOMEN: Soft. Does not appear to be distended, though the patient does have a protuberant abdomen noted. Bowel sounds are present in all 4 quadrants, were normoactive. EXTREMITIES: No cyanosis or edema noted. Pulse, motor, and sensory is intact in all extremities. Radial and pedal pulses were 2+ bilaterally. INTEGUMENTARY: The patient's skin is pink, warm, and dry. NEUROLOGICAL: Patient is alert and oriented to person only at this time, though she is able to move all extremities. She does not have any focal neurological deficits noted. ASSESSMENT AND PLAN: 1. Encephalopathy. The patient's family reports that she has had worsening confusion. She is only oriented to person at this time. They state that the patient has become extremely paranoid. She was up all night last night pacing the house. She has been refusing her medications and refusing to eat. They also report that in the ER this evening she became confused, anxious, and uncooperative at times. Family is concerned, at this time, due to they are not able to manage her at home with her worsening confusion, agitation, and uncooperativeness. The patient may require rehab or long-term placement upon discharge. We have placed a consult with social services designee and case management. The patient has no focal neurological deficits noted, she was evaluated in the ER yesterday for the same complaints. Her CT of the head without contrast performed on 11/04/18 did not show any acute intracranial abnormalities, there was some atrophic changes and chronic ischemic changes similar to prior. We will continue to follow. 2. Hypertension. We will continue her regularly prescribed antihypertensive medications. 3. History of paroxysmal atrial fibrillation. The patient is in sinus rhythm at this time, her rate is controlled. We will continue her Cardizem and Toprol. 4. Anemia. We will continue her ferrous sulfate. 5. Deep vein thrombosis prophylaxis will be provided with sequential compression devices. The patient has been placed on the medical floor with telemetry. She will have vital signs every 8 hours, and do strict intakes and outputs. She will be on a heart healthy diet. We will repeat a CBC, BMP in the morning. Further orders and recommendations pending hospital course, diagnostic studies, and physician evaluation. Dictated by RADHA Mendoza for Fahad Nguyễn MD I have performed a face to face diagnostic evaluation. Labs/ Xrays- reviewed. Exam- chest - clear, Neuro- confused. A/P- AMS/ Dementia- Admit, neuro checks, supportive care, social service consult for placement. Dr. Nguyễn cc: Fahad Nguyễn MD [facility]
[2018-11-06 07:15] LABS: BASO# 0.09 X1000 (0.0-0.2); BASO% 1.2 % (0.0-0.8); EOS# 0.59 X1000 (0.0-0.7); EOS% 7.7 % (0.0-10.0); HEMATOCRIT 35.4 % (37.0-47.0); HEMOGLOBIN 10.4 g/dL (12.0-16.0); IMM GRAN# 0.02 X1000 (0.0-0.04); IMM GRAN% 0.3 % (0.0-0.5); LYMPH# 2.16 X1000 (1.2-3.4); LYMPH% 28.2 % (20.5-51.1); MCH 22.4 PG (27-31); MCHC 29.4 g/dL (33-37); MCV 76.3 FL (81-99); MONO# 0.67 X1000 (0.11-0.59); MONO% 8.8 % (1.7-9.3); MPV 13.1 FL (7.4-10.4); NEUT# 4.12 X1000 (1.4-6.5); NEUT% 53.8 % (42.2-75.2); PLT 271 X1000 (130-400); RBC 4.64 XMIL (4.2-5.4); RDW 18.9 % (11.5-14.5); WBC 7.65 X1000 (4.8-10.8)
[2018-11-06 07:22] LABS: HEMOGLOBIN A1C 5.5 % (4.8-6.0)
[2018-11-06 07:24] LABS: CALCIUM 10.3 mg/dL (8.8-10.2); POTASSIUM 3.4 mmol/L (3.5-5.1)
--- NOTE | 2018-11-06 07:57 | EKG Report ---
Test Performed on : 11/05/2018 6:31:26 PM Test Reason : ED. NO EKG ORDER FOR MUSE Blood Pressure : / mmHG Vent. Rate : 109 BPM Atrial Rate : 109 BPM P-R Int : 164 ms QRS Dur : 074 ms QT Int : 326 ms P-R-T Axes : 059 -32 073 degrees QTc Int : 439 ms Sinus tachycardia. Left axis deviation Left ventricular hypertrophy with repolarization abnormality Abnormal ECG When compared with ECG of 04-NOV-2018 16:47, (Unconfirmed) Criteria for Anterior infarct are no longer present Unconfirmed Result
[2018-11-06] MEDS: TOPROL XL PO SCH ×2 (08:17→21:20)
[2018-11-06] MEDS: ZYLOPRIM PO SCH (08:17)
[2018-11-06] MEDS: LEXAPRO PO SCH (08:17)
[2018-11-06] MEDS: ASPIRIN PO SCH (08:17)
[2018-11-06] MEDS: ELAVIL PO SCH (08:17)
[2018-11-06] MEDS: FERROUS SULFATE PO SCH (08:18)
[2018-11-06] MEDS: CENTRUM SILVER PO SCH (08:18)
[2018-11-06] MEDS: DITROPAN PO SCH (08:18)
[2018-11-06] MEDS: PROTONIX PO SCH ×2 (08:18→21:19)
[2018-11-06] MEDS ORDERED: LASIX PO SCH (09:00)
[2018-11-06] MEDS ORDERED: NS 1,000 ML IV ONE (17:45)
--- NOTE | 2018-11-06 18:49 | PROGRESS NOTE ---
DATE: 11/06/2018 SUBJECTIVE: She is awake and alert, I feel like. OBJECTIVE: Blood pressure is 138/61, heart rate of 86, respiratory rate 19, temperature 98.5 degrees.Cardiovascular: Regular rate and rhythm. Pulmonary: Bilateral breath sounds, clear to auscultation. GI was soft, nontender, nondistended. Bowel sounds are positive. She has a nonfocal neurologic exam. LABORATORY DATA: White count 7, hemoglobin and hematocrit 10 and 35, platelets 271,000, potassium 3.4. I do not see any evidence of anything to explain her behavior. ASSESSMENT AND PLAN: 1. Encephalopathy. I really just think this is worsening dementia. She has a nonfocal exam. She is disoriented. There are no obvious abnormalities. I personally think we need to get a geropsychiatry evaluation myself, and we will pursue that tomorrow. 2. Hypertension. Continue regular medications. 3. Atrial fibrillation, stable. We will continue regular medications. Tomorrow I think we will get a [facility] evaluation and see if there is anything there, and then pursue other opportunities. At this point I really do not think she has other major issues currently. cc: Bhargav Coronel MD
[2018-11-06 19:16] LABS: ALBUMIN 3.1 g/dL (3.5-5.0); CALCIUM 10.4 mg/dL (8.8-10.2); CREATININE 0.9 mg/dL (0.5-0.9); POTASSIUM 3.3 mmol/L (3.5-5.1); TOTAL BILIRUBIN 0.32 mg/dL (0.20-1.00); TOTAL PROTEIN 6.1 g/dL (6.3-8.3)
[2018-11-06 20:56] LABS: URINE SOURCE CATH
[2018-11-06 21:02] LABS: BILIRUBIN URINE NEGATIVE (NEGATIVE); BLOOD URINE TRACE (NEGATIVE); COLOR YELLOW; GLUCOSE URINE NEGATIVE (NEGATIVE); KETONE URINE NEGATIVE (NEGATIVE); LEUKOCYTES URINE MODERATE (NEGATIVE); NITRITE URINE NEGATIVE (NEGATIVE); PROTEIN URINE NEGATIVE (NEGATIVE); SP GRAVITY URINE 1.012; TURBIDITY URINE HAZY (CLEAR); UROBILINOGEN URINE NORMAL (NORMAL)
[2018-11-06 21:04] LABS: UR EPITHELIAL CELLS <10 /HPF (<10); URINE BACTERIA 3+ /HPF
[2018-11-07] MEDS: CARDIZEM PO SCH ×4 (06:07→21:11)
[2018-11-07] MEDS: LOVENOX SUBQ SCH ×2 (06:07→16:28)
[2018-11-07] MEDS: ASPIRIN PO SCH (12:34)
[2018-11-07] MEDS: CENTRUM SILVER PO SCH (12:34)
[2018-11-07] MEDS: LEXAPRO PO SCH (12:35)
[2018-11-07] MEDS: ELAVIL PO SCH (12:35)
[2018-11-07] MEDS: DITROPAN PO SCH (12:35)
[2018-11-07] MEDS: FERROUS SULFATE PO SCH (12:35)
[2018-11-07] MEDS: PROTONIX PO SCH ×2 (12:36→21:11)
[2018-11-07] MEDS: TOPROL XL PO SCH ×2 (12:36→21:11)
[2018-11-07] MEDS: ZYLOPRIM PO SCH (12:36)
[2018-11-07 13:29] LABS: BASO# 0.06 X1000 (0.0-0.2); BASO% 0.7 % (0.0-0.8); EOS# 0.62 X1000 (0.0-0.7); EOS% 6.8 % (0.0-10.0); HEMATOCRIT 38.9 % (37.0-47.0); HEMOGLOBIN 11.2 g/dL (12.0-16.0); MCH 22.7 PG (27-31); MCHC 28.8 g/dL (33-37); MCV 78.7 FL (81-99); MONO# 0.64 X1000 (0.11-0.59); MPV 12.8 FL (7.4-10.4); NEUT# 5.71 X1000 (1.4-6.5); NEUT% 62.5 % (42.2-75.2); PLT 264 X1000 (130-400); RBC 4.94 XMIL (4.2-5.4); RDW 19.2 % (11.5-14.5); WBC 9.13 X1000 (4.8-10.8)
[2018-11-07 13:45] LABS: BASO 1 % (0-1); EOS 5 % (1-10); HYPOCHROM 1+; LYMPHS 27 % (21-51); MONO 5 % (1-9); SEGS 62 % (42-75)
--- NOTE | 2018-11-07 16:05 | PROGRESS NOTE ---
DATE: 11/07/2018 SUBJECTIVE: Patient has no major complaints. OBJECTIVE: Vital Signs: Blood pressure 149/51, heart rate 92, respiratory rate 19, temperature 98.1 degrees, satting 98% on room air. Cardiovascular: Regular rate and rhythm. Pulmonary: Bilateral breath sounds. Clear to auscultation. GI: Soft, nontender, nondistended. Bowel sounds are positive. LABORATORY DATA: White count is 9, hemoglobin and hematocrit 11 and 38, platelets 264. CRP is 14. All her testing is really negative. PROBLEM LIST: 1. Encephalopathy. I think this is likely a progression of her dementia with her vascular versus Alzheimer. Today, she is more awake, alert. She is still confused. She does get a sense she is in the hospital, possibly in [place] versus [place]. She is still describing her at home and feels like he is cheating on her, but he is . She lives with her son. 2. Hypertension. We will continue regular medications. 3. Atrial fibrillation, stable currently. DISPOSITION: I think we will start with a [facility] consult for geriatric psych placement, and then pursue other opportunities accordingly. cc: Bhargav Coronel MD
[2018-11-07 19:49] VITALS: BP 155/55
--- NOTE | 2018-11-08 17:17 | DISCHARGE SUMMARY ---
ADMISSION DATE: 11/05/2018 DISCHARGE DATE: 11/08/2018 DISCHARGE DIAGNOSES: 1. Dementia, possible dementia versus vascular versus Alzheimer's. 2. Hypertension. 3. Atrial fibrillation. DISCHARGE OUTCOME: [facility] evaluation. HOSPITAL COURSE: The patient was admitted because she had been confused, refusing medications, refusing to eat. She stayed up pacing all night, anxious. Despite, I feel, clear dementia indications, she was admitted for medical evaluation and long-term placement. There were no medical issues. She had no pneumonia. She had no UTI. Her electrolytes were all normal. She had a mild whisper of leukocytosis of 11.6. Her TSH was elevated, but she had a free T4 that was normal. In any case, the patient was monitored. She was a bit sedated too when she first came in; lethargic, I would say. But she woke up the next day. We progressed. I felt she was medically stable for geriatric psychiatric evaluation. [facility] gracious enough to accept her in transfer. She did walk with PT a little bit about 5 feet. Further management will be per their service. cc: Bhargav Coronel MD
== END 2018-11-08 00:12 ==
LOC: SUPCPDRO → ED 16:42 → 3N 16:42 → SUATTDRO 20:42
PROVIDERS: ATTEND Internal Medicine